=== PATIENT | male | born 1960 | race Caucasian/White ===

== ENCOUNTER 2017-11-08 04:01 | Emergency (ER) | payer BC, OTHER ==
[2017-11-08 04:50] LABS: #Basophils 0.1 thou/uL (0.0-0.2); #Eosinphils 0.1 thou/uL (0.0-0.7); #Lymphocytes 0.4 thou/uL (1.20-3.40); #Monocytes 0.5 thou/uL (0.11-0.59); #Neutrophils 9.4 thou/uL (1.40-6.50); %Basophils 0.8 % (0.0-1.0); %Eosinophils 0.9 % (0.0-10.0); %Lymphocytes 3.4 % (21.0-51.0); %Monocytes 5.1 % (0.0-10.0); %Neutrophils 89.8 % (42.0-75.0); Hemoglobin 15.8 g/dL (14.0-18.0); Mean Corpuscular HGB CONC 34.5 g/dL (32.0-36.0); Mean Corpuscular Hemoglobin 30.4 pg (27.0-31.0); Mean Corpuscular Volume 88.2 fl (80.0-94.0); Platelet Count 161 thou/uL (130-400); Red Blood Cell (RBC) Count 5.19 mill/uL (4.70-6.10); White Blood Cell (WBC) Count 10.4 thou/uL (4.8-10.8)
[2017-11-08 05:03] LABS: ALT (SGPT) 26 U/L (8-55); AST (SGOT) 20 U/L (5-34); Albumin 4.1 g/dL (3.5-5.0); Alkaline Phosphatase 66 U/L (40-150); Anion Gap 11 mmol/L (10-20); BUN (Urea Nitrogen) 16 mg/dL (8.4-25.7); Bilirubin, Total 0.7 mg/dL (0.2-1.2); Calc. Creatinine Clearance 0 mL/min (70-130); Calcium 9.5 mg/dL (7.8-10.44); Carbon Dioxide 29 mmol/L (22-29); Chloride 101 mmol/L (98-107); Estimated GFR-MDRD 71; Globulin 2.7 g/dL (2.4-3.5); Glucose 141 mg/dL (70-105); Potassium 3.9 mmol/L (3.5-5.1); Protein, Total 6.8 g/dL (6.0-8.3); Sodium 137 mmol/L (136-145)
[2017-11-08 05:08] LABS: CKMB 2.9 ng/mL (0-6.6); Troponin I Less than 0.010 ng/mL (< 0.028)
--- NOTE | 2017-11-08 08:17 | RAD ---
PORTABLE UPRIGHT FRONTAL CHEST RADIOGRAPH: Date: 11-08-17 Comparison: 09-13-16 History: Syncope. FINDINGS: There is no pneumothorax, pleural fluid, focal consolidation or alveolar edema. Heart and mediastinal contours are unremarkable. IMPRESSION: No acute findings. POS: [facility]
--- NOTE | 2017-11-08 08:40 | CT ---
PRELIMINARY REPORT/[facility]/EMERGENTY AFTER-HOURS PROCEDURE CT Head Without Intravenous Contrast CLINICAL HISTORY: 57 years old, male; Signs and symptoms; Syncope and collapse; Patient HX: M57 presents to ed for sync opal event. Pt reports syncopal episode x2 while in the bathroom. Pt's family reports she heard pt pa ss out, helped him back up, and reports pt then passed out again. Pt reports hitting his head and knee and reports pain to both his head and knee. Pt reports HX of similar symptoms when undergoing ca ncer treatment but denies HX of symptoms recently. Pt reports cough which he reports is normal for hi m since having throat surgery. TECHNIQUE: Axial computed tomography images of the head/brain without intravenous contrast. COMPARISON: No relevant prior studies available. FINDINGS: No definite acute skull fracture. Essentially complete opacification of the right maxillary sinus. Mild to moderate right ethmoid sinus opacity/fluid. Included paranasal sinuses otherwise appear essentially clear. No acute intracranial hemorrhage or mass effect. Ventricle size is normal for age. No definite acute infarct by CT. MRI could be more sensitive/specific for an acute infarct if clinically indicated. IMPRESSION: No acute intracranial bleed or mass effect. No definite acute infarct by CT, see above. Paranasal sinus findings as discussed above. Thank you for allowing us to participate in the care of your patient. Dictated and Authenticated by: Yordan Ha MD 11/08/2017 4:48 AM Central Time ([place] & [place]) FINAL REPORT HEAD CT WITHOUT CONTRAST: DATE: 11/08/17. COMPARISON: None. HISTORY: Syncope, collapse. FINDINGS: I agree with the preliminary [facility] report. The imaged maxillary sinus on the right is opacified. Th ere is no displaced calvarial fracture. There is no intracranial hemorrhage, midline shift, mass eff ect, or ventricular enlargement. IMPRESSION: No acute findings. POS: [facility]
== END 2017-11-08 05:24 | disposition home or self-care (01) ==
LOC: ERS 04:01
DX: R55 Syncope and collapse (principal); J18.9 Pneumonia, unspecified organism; J32.9 Chronic sinusitis, unspecified; F32.9 Major depressive disorder, single episode, unspecified; Z85.819 Personal history of malignant neoplasm of unspecified site of lip, oral cavity, and pharynx; Z79.82 Long term (current) use of aspirin; Z79.899 Other long term (current) drug therapy
CPT/HCPCS: 70450; 71045; 80053; 82553; 84484; 85025; 93005

== ENCOUNTER 2020-04-24 09:02 | Outpatient (CLI) | payer BC, OTHER ==
--- NOTE | 2020-04-24 11:43 | MRI ---
MRI BRAIN WITH AND WITHOUT CONTRAST: DATE: 04/23/2020 HISTORY: 59-year-old male with ICD-10: Z92.3 history of head and neck radiation, R51 chronic intractable head ache, unspecified head type, I63.9 cerebrovascular accident (CVA), unspecified mechanism. TECHNIQUE: Multiple sequences obtained in axial, sagittal, and coronal planes; pre and post IV injection of gado linium-based contrast agent: 20 mL MultiHance. FINDINGS: The ventricles are normal in size and configuration. There is no restricted diffusion, abnormal intr aaxial enhancement, mass, midline shift or any other mass effect, recent intraaxial hemorrhage, or ex traaxial fluid collection. There are a few scattered punctate T2-hyperintensities in the cerebral whi te matter consistent with mild chronic ischemic white matter changes due to mild microvascular athero sclerosis. The left submandibular gland is absent. There is broad surgical defect involving the left side of the neck. The anterior belly of the left digastric muscle is either atrophic or absent. There is enhancing mucosal thickening circumferentially in the right maxillary sinus and throughout r ight anterior ethmoid air cells. The right maxillary antrum lumen is filled with material that has re stricted diffusion, is heterogeneously T2 and moderately hyperintense, and T1 intermediate, represent ing proteinaceous material. Similar findings for the right ethmoid air cells. There are signal voids on all pulse sequences in the sphenoid and frontal sinuses. IMPRESSION: 1. Mild chronic ischemic white matter changes. 2. No other abnormality of the brain. 3. Right-sided maxillary and ethmoid sinus disease in an ostiomeatal unit obstructive pattern. 4. Old postsurgical changes of left neck dissection, partially imaged. david[] POS: [facility]
[2020-04-24] MEDS ORDERED: Magnevist 469MG/ML 20 ML VIAL ONE (13:36)
== END 2020-04-24 09:03 | disposition home or self-care (01) ==
LOC: BICMRI 09:02
PROVIDERS: ATTEND Family Medicine
DX: R51 Headache (principal); I63.9 Cerebral infarction, unspecified; G93.89 Other specified disorders of brain; J32.2 Chronic ethmoidal sinusitis; Z98.890 Other specified postprocedural states; Z92.3 Personal history of irradiation
CPT/HCPCS: 70553; 87635; U0003

== ENCOUNTER 2020-09-17 18:59 | Inpatient (IN) | payer BC ==
[~2020-09-17 18:59] MED LIST: Iopamidol-370 76% 500 ML 1 ML ONE
--- NOTE | 2020-09-17 19:20 | CT ---
CT Brain WO Con: 09/17/2020 7:05 PM CLINICAL HISTORY: Level 1 stroke protocol with left sided numbness and headache. IMAGING TECHNIQUE: Multiple CT images were obtained of the brain without IV contrast. COMPARISON: CT the brain without contrast dated November 08, 2017 FINDINGS: BRAIN: Evidence of acute infarct: None. Evidence of chronic ischemic change:Mild chronic small vessel white matter ischemic changes stable. Evidence of intracranial hemorrhage: None. Evidence of brain volume loss:Generalized cerebral atrophy is stable. Evidence of midline shift: Third ventricle and septum pellucidum are midline. Ventricles: Normal. No hydrocephalus. SKULL: Intact. VISUALIZED PARANASAL SINUSES: There is dense opacification of the right ethmoid air cells and right maxillary sinus. There is chronic thickening involving the right maxillary sinus rangel. There is mild mucosal thickening within the right frontal sinus. MASTOID AIR CELLS: Clear. EXTRACRANIAL SOFT TISSUES: Normal. IMPRESSION: 1. No acute intracranial abnormality. Findings called Dr. Medel at 7:16 PM on September 17, 2020. 2. Worsening right ethmoid and maxillary paranasal sinus disease.
[2020-09-17] MEDS ORDERED: niCARdipine 20MG In NaCl 20 MG/200 ML BAG ONE (19:32)
[2020-09-17 19:35] LABS: #Eosinphils 0.2 thou/uL (0.0-0.7); #Lymphocytes 2.3 thou/uL (1.20-3.40); #Monocytes 0.8 thou/uL (0.11-0.59); #Neutrophils 5.4 thou/uL (1.40-6.50); %Basophils 0.3 % (0.0-1.0); %Eosinophils 2.2 % (0.0-10.0); %Lymphocytes 26.6 % (21.0-51.0); %Monocytes 8.6 % (0.0-10.0); %Neutrophils 62.3 % (42.0-75.0); Hemoglobin 15.2 g/dL (14.0-18.0); Mean Corpuscular HGB CONC 34.3 g/dL (32.0-36.0); Mean Corpuscular Hemoglobin 30.3 pg (27.0-31.0); Mean Corpuscular Volume 88.2 fL (78.0-98.0); Mean Platelet Volume 6.2 fL (7.4-10.4); Platelet Count 167 thou/uL (130-400); RBC Distribution Width 11.8 % (11.5-14.5); Red Blood Cell (RBC) Count 5.03 mill/uL (4.70-6.10); White Blood Cell (WBC) Count 8.7 thou/uL (4.8-10.8)
--- NOTE | 2020-09-17 19:39 | CT ---
CTA of the head with IV contrast and 3-D reformatted imaging. CTA of the neck with IV contrast and 3-D reformatted imaging. INDICATION: Left-sided numbness with headache COMPARISON: MRA the neck dated March 09, 2017 FINDINGS: CTA OF THE HEAD WITH CONTRAST: CTA OF THE BRAIN: Right ICA: Patent. Right MCA: Patent. Right CHARIS: Patent. ACOM: Patent. Left ICA: Patent. Left MCA: Patent. Left CHARIS: Patent. PCOMs: Not well-seen on the left. The right PCOM appears patent. Vertebral arteries: Patent. Basilar Artery: Patent. cutter machine: Patent. Incidentals: There is prominent paranasal sinus disease involving the right maxillary sinus, right e thmoid air cells and right frontal sinus. The right lens has been replaced. No abnormal enhancement is demonstrated intracranially. CTA OF THE NECK WITH CONTRAST: Right CCA: Patent. Right ICA: There is 75% stenosis involving the proximal right ICA, worsened from the prior exam. No additional focal stenosis is demonstrated. Right Subclavian: Patent. Right Vertebral Artery: Patent. Left CCA: Patent. Left ICA: There is 60% stenosis involving the proximal left internal carotid artery, worsened from t he prior exam. No additional focal stenosis is evident. Left Subclavian: Patent. Left Vertebral Artery: Patent. Aerodigestive tract: Clear. Parotids/Submandibular/Thyroid glands: There is atrophy involving inferior left parotid and left sub mandibular gland. The thyroid gland is also atrophic. Right submandibular gland is also mildly atrophic. Lymph nodes: No lymphadenopathy is evident. The left sternocleidomastoid muscle is surgically absent . Lung Apices: Clear. Bones: No acute osseous abnormality. Incidentals: None. IMPRESSION: 1. No hemodynamically significant stenosis, occlusion or aneurysmal formation evident within the brai n. 2. 75% luminal caliber narrowing involving the proximal right ICA. 3. 60% luminal caliber narrowing involving the proximal left ICA. 4. Postoperative change of the left aspect of the neck with atrophy involving portions of the inferio r left parotid, submandibular glands and thyroid gland possibly related prior radiation therapy. 5. Significant paranasal sinus disease of the right maxillary sinus, right ethmoid air cells and righ t frontal sinus.
[2020-09-17 19:42] LABS: INR-International Normal Ratio 0.9; PTT 29.1 sec (22.9-36.1); Prothrombin Time 12.6 sec (12.0-14.7)
[2020-09-17 19:51] LABS: ALT (SGPT) 37 U/L (8-55); AST (SGOT) 30 U/L (5-34); Alkaline Phosphatase 64 U/L (40-110); Anion Gap 16 mmol/L (10-20); BUN (Urea Nitrogen) 12 mg/dL (8.4-25.7); Bilirubin, Total 0.4 mg/dL (0.2-1.2); CK (CPK) 158 U/L (30-200); Calc. Creatinine Clearance 0 mL/min (70-130); Calcium 8.7 mg/dL (7.8-10.44); Carbon Dioxide 20 mmol/L (22-29); Chloride 104 mmol/L (98-107); Globulin 2.8 g/dL (2.4-3.5); Glucose 163 mg/dL (70-105); Potassium 4.2 mmol/L (3.5-5.1); Protein, Total 6.8 g/dL (6.0-8.3); Sodium 136 mmol/L (136-145)
[2020-09-17] MEDS ORDERED: Ondansetron ODT 4 MG TAB SL PRN (23:45)
[2020-09-17] MEDS ORDERED: Ondansetron PF 4 MG/2 ML Vial IVP PRN (23:45)
[2020-09-17] MEDS ORDERED: Acetaminophen 325 MG TAB PO PRN (23:45)
[2020-09-18 00:19] LABS: SARS-CoV-2 NAA Rapid Test Not Detected (NotDetected)
[2020-09-18] MEDS ORDERED: niCARdipine 25 MG in Sodium Chloride 0.9% 250 ML 250 ML IVPB PRN (01:13)
[2020-09-18] MEDS ORDERED: Docusate 100 MG CAP PO PRN (01:13)
[2020-09-18] MEDS ORDERED: Labetalol HCl 100 MG/20 ML VIAL SLOW IVP PRN (01:13)
[2020-09-18] MEDS ORDERED: hydrALAZINE 20 MG/ML VIAL SLOW IVP PRN (01:13)
--- NOTE | 2020-09-18 01:20 | PDOC.HHP ---
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 Patient reports lateral elbow region of L arm became numb around 6pm, went to urgent care and sent to ED. He reports numbness in elbow and a bit in tongue and L thigh but no motor weakness, able to walk. In ED, patient given tPA and symptoms improved, now is a smaller area than when patient arrived. patient admitted to CCU for further workup and monitoring.CTA no hemodynamically significant stenosis, CT head no acute IC abnormalities. Allergies/Adverse Reactions: Allergy/AdvReac Type Severity Reaction Status Date / Time No Known Allergies Allergy Verified 09/18/20 00:21 Home Medications: Medication Instructions Recorded Confirmed Type Aspirin Chewable 81 mg PO DAILY 09/18/20 09/18/20 History Carvedilol [Coreg] 12.5 mg PO DAILY 09/18/20 09/18/20 History Clopidogrel Bisulfate [Clopidogrel] 75 mg PO DAILY 09/18/20 09/18/20 History Levothyroxine Sodium 150 mcg PO DAILY 09/18/20 09/18/20 History [Levothyroxine] Pravastatin Sodium [Pravachol] 20 mg PO HS 09/18/20 09/18/20 History Past History: PMH: ENT cancer, brain metastases PSH: throat surgery social history: weekly alcohol use FH: not relevant Hospitalist HPI ROS Constitutional: denies: fever, chills, sweats, weakness, malaise, other Eyes: denies: pain, vision change, conjunctivae inflammation, eyelid inflammation, redness, other ENT: denies: ear pain, ear discharge, nose pain, nose discharge, nose congestion, mouth pain, mouth swelling, throat pain, throat swelling, other Respiratory: denies: cough, dry, shortness of breath, hemoptysis, SOB with excertion, pleuritic pain, sputum, wheezing, other Cardiovascular: denies: chest pain, palpitations, orthopnea, paroxysmal noc. dyspnea, edema, light headedness, other Gastrointestinal: denies: nausea, vomiting, abdominal pain, diarrhea, constipation, melena, hematochezia, other Genitourinary: denies: dysuria, frequency, incontinence, hematuria, retention, other Musculoskeletal: denies: neck pain, shoulder pain, arm pain, back pain, hand pain, leg pain, foot pain, other Skin: denies: rash, lesions, toribio, bruising, other Neurological: reports: numbness, incoordination. denies: weakness, change in speech, confusion, seizures, other All other systems reviewed; all pertinent +/- noted in HPI/Subj Hospitalist Exam Vitals: Vital Signs (12 hours) Pulse Ox 09/18/20 00:45 96 Weight Weight 276 lb 7.355 oz Most Recent Monitor Data Heart Rate from ECG 72 NIBP 110/56 NIBP BP-Mean 74 Respiration from ECG 16 SpO2 94 General Appearance: NAD, awake alert Eye: PERRL, anicteric sclera ENT: normocephalic atraumatic, no oropharyngeal lesions, moist mucosa Neck: supple, symmetric, no JVD, no thyromegaly, no lymphadenopathy, no carotid bruit Heart: RRR, no murmur, no gallops, no rubs, normal peripheral pulses Respiratory: CTAB, no wheezes, no rales, no ronchi, normal chest expansion, no tachypnea, normal percussion Gastrointestinal: soft, non-tender, non-distended, normal bowel sounds, no palpable masses, no hepatomegaly, no splenomegaly, no bruit Extremities: no cyanosis, no clubbing, no edema Skin: normal turgor, no lesions, no rashes Neurological: cranial nerve grossly intact, no weakness, no new deficit Neurological - other findings: reduced sensation to touch lateral aspect of L arm Musculoskeletal: normal tone, normal strength, no muscle wasting Psychiatric: normal affect, normal behavior, A&O x 3 Hospitalist Results Result Diagrams: 09/17/20 19:13 09/17/20 19:13 Lab results: Laboratory Last Values WBC 8.7 thou/uL (4.8-10.8) 09/17/20 19:13 RBC 5.03 mill/uL (4.70-6.10) 09/17/20 19:13 Hgb 15.2 g/dL (14.0-18.0) 09/17/20 19:13 Hct 44.4 % (42.0-52.0) 09/17/20 19:13 MCV 88.2 fL (78.0-98.0) 09/17/20 19:13 MCH 30.3 pg (27.0-31.0) 09/17/20 19:13 MCHC 34.3 g/dL (32.0-36.0) 09/17/20 19:13 RDW 11.8 % (11.5-14.5) 09/17/20 19:13 Plt Count 167 thou/uL (130-400) 09/17/20 19:13 MPV 6.2 fL (7.4-10.4) L 09/17/20 19:13 Neutrophils % 62.3 % (42.0-75.0) 09/17/20 19:13 Lymphocytes % 26.6 % (21.0-51.0) 09/17/20 19:13 Monocytes % 8.6 % (0.0-10.0) 09/17/20 19:13 Eosinophils % 2.2 % (0.0-10.0) 09/17/20 19:13 Basophils % 0.3 % (0.0-1.0) 09/17/20 19:13 Neutrophils # 5.4 thou/uL (1.40-6.50) 09/17/20 19:13 Lymphocytes # 2.3 thou/uL (1.20-3.40) 09/17/20 19:13 Monocytes # 0.8 thou/uL (0.11-0.59) H 09/17/20 19:13 Eosinophils # 0.2 thou/uL (0.0-0.7) 09/17/20 19:13 Basophils # 0.0 thou/uL (0.0-0.2) 09/17/20 19:13 PT 12.6 sec (12.0-14.7) 09/17/20 19:13 INR 0.9 09/17/20 19:13 APTT 29.1 sec (22.9-36.1) 09/17/20 19:13 Sodium 136 mmol/L (136-145) 09/17/20 19:13 Potassium 4.2 mmol/L (3.5-5.1) 09/17/20 19:13 Chloride 104 mmol/L (98-107) 09/17/20 19:13 Carbon Dioxide 20 mmol/L (22-29) L 09/17/20 19:13 Anion Gap 16 mmol/L (10-20) 09/17/20 19:13 BUN 12 mg/dL (8.4-25.7) 09/17/20 19:13 Creatinine 1.12 mg/dL (0.7-1.3) 09/17/20 19:13 Estimated GFR (MDRD) 67 09/17/20 19:13 Glucose 163 mg/dL (70-105) H 09/17/20 19:13 POC Glucose 187 mg/dL (70-100) H 09/17/20 19:14 Calcium 8.7 mg/dL (7.8-10.44) 09/17/20 19:13 Total Bilirubin 0.4 mg/dL (0.2-1.2) 09/17/20 19:13 AST 30 U/L (5-34) 09/17/20 19:13 ALT 37 U/L (8-55) 09/17/20 19:13 Alkaline Phosphatase 64 U/L (40-110) 09/17/20 19:13 Creatine Kinase 158 U/L (30-200) 09/17/20 19:13 Troponin I 0.025 ng/mL (< 0.028) 09/17/20 19:13 Serum Total Protein 6.8 g/dL (6.0-8.3) 09/17/20 19:13 Albumin 4.0 g/dL (3.5-5.0) 09/17/20 19:13 Globulin 2.8 g/dL (2.4-3.5) 09/17/20 19:13 Albumin/Globulin Ratio 1.4 g/dL (1.2-2.2) 09/17/20 19:13 Influenza A RNA INAAT Not Detected (NotDetected) 09/17/20 23:25 Influenza B RNA INAAT Not Detected (NotDetected) 09/17/20 23:25 SARS-CoV-2 Rap RNA(RT-PCR) Not Detected (NotDetected) 09/17/20 23:25 Additional comment: labs, ED documents, imaging reports reviewed RADIOLOGY CTA Angio Head W WO Con Observe DT: Sera Sep 17, 2020 CTABR CTA of the head with IV contrast and 3-D reformatted imaging. CTA of the neck with IV contrast and 3-D reformatted imaging. INDICATION: Left-sided numbness with headache COMPARISON: MRA the neck dated March 09, 2017 FINDINGS: CTA OF THE HEAD WITH CONTRAST: CTA OF THE BRAIN: Right ICA: Patent. Right MCA: Patent. Right CHARIS: Patent. ACOM: Patent. Left ICA: Patent. Left MCA: Patent. Left CHARIS: Patent. PCOMs: Not well-seen on the left. The right PCOM appears patent. Vertebral arteries: Patent. Basilar Artery: Patent. chief operations officer: Patent. Incidentals: There is prominent paranasal sinus disease involving the right maxillary sinus, right e thmoid air cells and right frontal sinus. The right lens has been replaced. No abnormal enhancement is demonstrated intracranially. CTA OF THE NECK WITH CONTRAST: Right CCA: Patent. Right ICA: There is 75% stenosis involving the proximal right ICA, worsened from the prior exam. No additional focal stenosis is demonstrated. Right Subclavian: Patent. Right Vertebral Artery: Patent. Left CCA: Patent. Left ICA: There is 60% stenosis involving the proximal left internal carotid artery, worsened from t he prior exam. No additional focal stenosis is evident. Left Subclavian: Patent. Left Vertebral Artery: Patent. Aerodigestive tract: Clear. Parotids/Submandibular/Thyroid glands: There is atrophy involving inferior left parotid and left sub mandibular gland. The thyroid gland is also atrophic. Right submandibular gland is also mildly atrophic. Lymph nodes: No lymphadenopathy is evident. The left sternocleidomastoid muscle is surgically absent . Lung Apices: Clear. Bones: No acute osseous abnormality. Incidentals: None. IMPRESSION: 1. No hemodynamically significant stenosis, occlusion or aneurysmal formation evident within the brai n. 2. 75% luminal caliber narrowing involving the proximal right ICA. 3. 60% luminal caliber narrowing involving the proximal left ICA. 4. Postoperative change of the left aspect of the neck with atrophy involving portions of the inferio r left parotid, submandibular glands and thyroid gland possibly related prior radiation therapy. 5. Significant paranasal sinus disease of the right maxillary sinus, right ethmoid air cells and righ t frontal sinus. Hospitalist H&P A/P Plan: Patient is a 60 year old male with PMH ENT cancer w/ lymph node mets who presents to ED for L sided numbness. # presumed stroke s/p tPA lateral elbow region of L arm became numb around 6pm, went to urgent care and sent to ED. He reports numbness in elbow and a bit in tongue and L thigh but no motor weakness, able to walk. In ED, patient given tPA and symptoms improved, now is a smaller area than when patient arrived. patient admitted to CCU for further workup and monitoring.CTA no hemodynamically significant stenosis, CT head no acute IC abnormalities. 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 To the best of his knowledge he is cancer free at this time. No history of intracranial mets. Patient denies any weakness. He does report some numbness that was around his mouth as well. Symptoms are slightly improved compared to earlier but he is still having numbness in the left arm. - make sure no brain mets w/ MRI as above - outpatient surveillance recommended
[2020-09-18] MEDS: [UNRECOGNIZED DRUG - REMARK] FS SCH (05:06)
[2020-09-18] MEDS: Levothyroxine 150 MCG TAB PO SCH (05:39)
--- NOTE | 2020-09-18 07:04 | CT ---
PRELIMINARY REPORT/[facility]/EMERGENCY AFTER HOURS PROCEDURE: EXAM: CT Head Without Intravenous Contrast. CLINICAL HISTORY: S/P TPA TECHNIQUE: Axial computed tomography images of the head/brain without intravenous contrast. COMPARISON: CT\SR - CT BRAIN WO CON - 09/17/2020 07:12 PM CATHETER FINISHER AND INSPECTOR FINDINGS: BRAIN: No acute intraparenchymal hemorrhage. No mass lesion. No CT evidence for acute territorial inf arct. No midline shift or extra-axial collection. VENTRICLES: No hydrocephalus. ORBITS: The orbits are unremarkable. SINUSES AND MASTOIDS: There is stable opacification and mucoperiosteal thickening of the right maxill paolo sinus with persistent opacification of the anterior right ethmoid air cells. SOFT TISSUES: No significant facial or scalp soft tissue swelling evident. No radiopaque foreign body is seen. BONES: No acute skull fracture. IMPRESSION: 1. No acute intracranial abnormality. 2. Stable right maxillary and ethmoid sinus disease. ELECTRONICALLY SIGNED BY: Sean Downing DO Sep 18, 2020 4:43:06 AM CATHETER FINISHER AND INSPECTOR FINAL REPORT HEAD CT WITHOUT CONTRAST: DATE: 09/18/2020. COMPARISON: 09/17/2020. HISTORY: CVA status post TPA administration. FINDINGS: The imaged paranasal sinuses and mastoid air cells demonstrate opacification of the anterior ethmoid air cells, the maxillary sinus, and the frontal sinus (partially) on the right. The imaged paranasal sinuses and mastoid air cells are otherwise unremarkable. No acute osseous abnormality. No intracranial hemorrhage, midline shift, mass effect, or ventricular enlargement. IMPRESSION: No intracranial hemorrhage. Transcribed Date/Time: 09/18/2020 7:34 AM
[2020-09-18] MEDS ORDERED: Magnevist 469MG/ML 20 ML VIAL ONE (12:05)
--- NOTE | 2020-09-18 12:22 | PDOC.HOSPP ---
- Subjective Encounter Date: 09/18/20 Encounter Time: 12:20 Subjective: f/u for CVA s/p tPA with R ICA stenosis of 75%. Feels some sensory deficits of LUE otherwise no complaints. - Objective Vital Signs & Weight: Vital Signs (12 hours) Temp Pulse Ox 09/18/20 08:00 97 09/18/20 04:00 97.5 F L 09/18/20 00:45 96 Weight Weight 276 lb 7.355 oz Most Recent Monitor Data Heart Rate from ECG 77 NIBP 135/79 NIBP BP-Mean 97 Respiration from ECG 17 SpO2 96 I&O: 09/17/20 09/18/20 09/19/20 06:59 06:59 06:59 Intake Total 240 Output Total 580 420 Balance -340 -420 Result Diagrams: 09/17/20 19:13 09/17/20 19:13 Additional Labs: Accuchecks 09/17/20 19:14 POC Glucose 187 H Laboratory Tests 09/17/20 23:25 Influenza A RNA INAAT Not Detected Influenza B RNA INAAT Not Detected SARS-CoV-2 Rap RNA(RT-PCR) Not Detected Radiology Reviewed by me: Yes (CT brain - no acute process; CTA head/neck - R ICA 75%, L ICA 60%) EKG Reviewed by me: Yes (Tele - SR) Hospitalist ROS - Medication Medications: Active Medications Generic Name Dose Route Start Last Admin Trade Name Freq PRN Reason Stop Dose Admin Levothyroxine Sodium 150 mcg 09/18/20 06:00 09/18/20 05:39 Levothyroxine 150 Mcg Tab PO 150 mcg 0600 [facility] Administration Miscellaneous Information 1 each 09/18/20 01:13 09/18/20 05:06 No Anticoag -Tpa FS 09/19/20 08:59 Not Given NOW [facility] Hospitalist Exam Vitals: Vital Signs (12 hours) Temp Pulse Ox 09/18/20 08:00 97 09/18/20 04:00 97.5 F L 09/18/20 00:45 96 Weight Weight 276 lb 7.355 oz Most Recent Monitor Data Heart Rate from ECG 77 NIBP 135/79 NIBP BP-Mean 97 Respiration from ECG 17 SpO2 96 General Appearance: NAD, awake alert Eye: PERRL, anicteric sclera ENT: normocephalic atraumatic, no oropharyngeal lesions Neck: supple, symmetric, no JVD, no thyromegaly, no lymphadenopathy Heart: RRR, no gallops, no rubs, normal peripheral pulses Heart - other findings: S1, S2 Respiratory: CTAB, no wheezes, no rales, no ronchi, normal chest expansion, no tachypnea Gastrointestinal: soft, non-tender, non-distended, normal bowel sounds, no palpable masses Extremities: no cyanosis, no clubbing, no edema Skin: normal turgor, no lesions Neurological: cranial nerve grossly intact, no new deficit Musculoskeletal: normal tone, normal strength, no muscle wasting Psychiatric: A&O x 3, flat affect Hosp A/P (1) Acute CVA (cerebrovascular accident) Code(s): I63.9 - CEREBRAL INFARCTION, UNSPECIFIED Status: Acute Plan: R cerebral hemisphere infarcts, continue general stroke protocol, ASA/Lipitor, Echo pending, consult Vascular surgery regarding focal stenosis of ICA's (2) Hypertensive urgency Code(s): I16.0 - HYPERTENSIVE URGENCY Status: Acute Plan: Resolved, continue monitoring BP trend (3) Hypothyroidism Code(s): E03.9 - HYPOTHYROIDISM, UNSPECIFIED Status: Chronic (4) HLD (hyperlipidemia) Code(s): E78.5 - HYPERLIPIDEMIA, UNSPECIFIED Status: Chronic (5) CKD (chronic kidney disease), stage II Code(s): N18.2 - CHRONIC KIDNEY DISEASE, STAGE 2 (MILD) Status: Chronic - Plan plan discussed w/ family, PT/OT, social media specialist, speech therapy, respiratory therapy, out of bed/ambulate, DVT proph w/SCDs Stable currently Continue routine stroke protocol s/p tPA Avoid NSAIDs/anticoagulation Appreciate Neurology assitance 2D echo pending AM lab: BMP, CBC, A1C, Lipids Transfer to stroke
--- NOTE | 2020-09-18 13:21 | MRI ---
MRI of thebrain with and without contrast: 09/18/2020 COMPARISON:04/24/2020 HISTORY:Left-sided weakness, history of malignancy with metastatic disease, status post TPA administr ation TECHNIQUE: Multiplanar multisequence MR imaging of thebrain with and without contrast Findings:The diffusion weighted imaging demonstrates a very tiny punctate focus of increased signal i ntensity posteriorly on image 46 within the posterior parietal region on the right. A similar punctate focus is seen within the right frontal lobe laterally on image 47. At the level the vertex t here are a few punctate foci of increased signal intensity as well within the posterior right frontal parietal region. These findings suggest multiple tiny distal foci of acute infarction. No vicki dence for acute infarction is seen involving the left cerebrum, the brainstem, or the cerebellum. The axial gradient echo imaging demonstrates no evidence for intracranial hemorrhage. No midline shif t or mass effect. No ventricular enlargement. There are a few scattered subcentimeter foci of increased T2 and FLAIR signal within the white matter suggesting small vessel disease and increased s ignal intensity associated with the punctate areas of acute infarction mentioned above. The postcontrast imaging demonstrates no abnormal enhancement within the brain parenchyma. There is stable opacification of the frontal sinus, ethmoid air cells, and maxillary sinus on the rig ht. Arterial flow voids at the axial level of the skull base appear grossly unremarkable on the T2-weight ed imaging. IMPRESSION:Punctate foci of acute infarction within the right cerebral hemisphere as described above. No evidence for hemorrhage. No midline shift, mass effect, or intracranial enhancing lesions.
[2020-09-18] MEDS: Acetaminophen 500 MG TAB PO PRN (14:10)
--- NOTE | 2020-09-18 14:22 | CON ---
NEUROLOGY CONSULTATION DATE OF CONSULTATION: 09/18/2020 REASON FOR CONSULTATION: CVA, status post tPA. HISTORY OF PRESENT ILLNESS: Mr. Cristóbal Reyes is a 60-year-old male with medical history significant for ENT cancer with brain metastasis, status post throat surgery, presented to the emergency room with acute onset left-sided weakness and paresthesias . History is taken from the patient and also from the at bedside. Per , he decided to come to the hospital for further evaluation because he was concerned about stroke. In the emergency room, head CT was done, which was negative for acute intracranial abnormality. CTA did not show hemodynamically significant stenosis. He was found to be in hypertensive emergency and was started on nicardipine drip to get his blood pressure under control and was given tPA later that evening, which resulted in resolution of motor deficits. Per patient, he was unable to move his left arm and was weak in the left leg and the motor weakness is now resolved, but however, he still has tingling and he still has numbness on the left side of the face and the left upper and lower extremity. The patient denies nausea, vomiting, headache, chest pain, abdominal pain, double vision, loss of vision, problems with speech or swallowing, recent illness, or recent exposure to COVID-19. REVIEW OF SYSTEMS: All systems reviewed and were negative except the pertinent positives and negatives mentioned in the HPI. PAST MEDICAL HISTORY: ENT cancer, brain metastasis, throat surgery. SOCIAL HISTORY: Uses alcohol, but denies history of alcohol abuse. FAMILY HISTORY: No history of stroke. Allergies/Adverse Reactions: Allergy/AdvReac Type Severity Reaction Status Date / Time No Known Allergies Allergy Verified 09/18/20 00:21 Home Medications: Medication Instructions Recorded Confirmed Type Aspirin Chewable 81 mg PO DAILY 09/18/20 09/18/20 History Carvedilol [Coreg] 12.5 mg PO DAILY 09/18/20 09/18/20 History Clopidogrel Bisulfate [Clopidogrel] 75 mg PO DAILY 09/18/20 09/18/20 History Levothyroxine Sodium 150 mcg PO DAILY 09/18/20 09/18/20 History [Levothyroxine] Pravastatin Sodium [Pravachol] 20 mg PO HS 09/18/20 09/18/20 History Vital Signs & Weight: Vital Signs (12 hours) Temp Pulse Ox 09/18/20 08:00 97 09/18/20 04:00 97.5 F L 09/18/20 00:45 96 Weight Weight 276 lb 7.355 oz Most Recent Monitor Data Heart Rate from ECG 77 NIBP 135/79 NIBP BP-Mean 97 Respiration from ECG 17 SpO2 96 I&O: 09/17/20 09/18/20 09/19/20 06:59 06:59 06:59 Intake Total 240 Output Total 580 420 Balance -340 -420 Additional Labs: Accuchecks 09/17/20 19:14 POC Glucose 187 H Laboratory Tests 09/17/20 23:25 Influenza A RNA INAAT Not Detected Influenza B RNA INAAT Not Detected SARS-CoV-2 Rap RNA(RT-PCR) Not Detected Active Medications Generic Name Dose Route Start Last Admin Trade Name [employer] PRN Reason Stop Dose Admin Levothyroxine Sodium 150 mcg 09/18/20 06:00 09/18/20 05:39 Levothyroxine 150 Mcg Tab PO 150 mcg 0600 DEION Administration Miscellaneous Information 1 each 09/18/20 01:13 09/18/20 05:06 No Anticoag -Tpa FS 09/19/20 08:59 Not Given NOW DEION Vital Signs (12 hours) Pulse Ox 09/18/20 00:45 96 Weight Weight 276 lb 7.355 oz Most Recent Monitor Data Heart Rate from ECG 72 NIBP 110/56 NIBP BP-Mean 74 Respiration from ECG 16 SpO2 94 PHYSICAL EXAMINATION: General Appearance: NAD, awake alert Eye: PERRL, anicteric sclera ENT: normocephalic atraumatic, no oropharyngeal lesions, moist mucosa Neck: supple, symmetric, no JVD, no thyromegaly, no lymphadenopathy, no carotid bruit Heart: RRR, no murmur, no gallops, no rubs, normal peripheral pulses Respiratory: CTAB, no wheezes, no rales, no ronchi, normal chest expansion, no tachypnea, normal percussion Gastrointestinal: soft, non-tender, non-distended, normal bowel sounds, no palpable masses, no hepatomegaly, no splenomegaly, no bruit Extremities: no cyanosis, no clubbing, no edema Skin: normal turgor, no lesions, no rashes Neurological: Mental status; the patient is alert and oriented to person, place, and time. Recent and remote memory, intact. Fund of knowledge is appropriate. Speech is clear. Cranial nerves II through XII intact except decreased sensation to light touch in the V1, V2, V3 distribution. Motor; muscle tone and bulk are normal. Strength, 5/5 bilaterally. Sensory, decreased sensation to light touch in the left upper and lower extremity. Gait, deferred due to patient's safety reasons. Cerebellar, finger-nose testing intact. DATA REVIEWED: I reviewed the labs, which were significant for hyperglycemia of 163. CTA of the head and neck did not reveal hemodynamically significant stenosis. WBC 8.7 thou/uL (4.8-10.8) 09/17/20 19:13 RBC 5.03 mill/uL (4.70-6.10) 09/17/20 19:13 Hgb 15.2 g/dL (14.0-18.0) 09/17/20 19:13 Hct 44.4 % (42.0-52.0) 09/17/20 19:13 MCV 88.2 fL (78.0-98.0) 09/17/20 19:13 MCH 30.3 pg (27.0-31.0) 09/17/20 19:13 MCHC 34.3 g/dL (32.0-36.0) 09/17/20 19:13 RDW 11.8 % (11.5-14.5) 09/17/20 19:13 Plt Count 167 thou/uL (130-400) 09/17/20 19:13 MPV 6.2 fL (7.4-10.4) L 09/17/20 19:13 Neutrophils % 62.3 % (42.0-75.0) 09/17/20 19:13 Lymphocytes % 26.6 % (21.0-51.0) 09/17/20 19:13 Monocytes % 8.6 % (0.0-10.0) 09/17/20 19:13 Eosinophils % 2.2 % (0.0-10.0) 09/17/20 19:13 Basophils % 0.3 % (0.0-1.0) 09/17/20 19:13 Neutrophils # 5.4 thou/uL (1.40-6.50) 09/17/20 19:13 Lymphocytes # 2.3 thou/uL (1.20-3.40) 09/17/20 19:13 Monocytes # 0.8 thou/uL (0.11-0.59) H 09/17/20 19:13 Eosinophils # 0.2 thou/uL (0.0-0.7) 09/17/20 19:13 Basophils # 0.0 thou/uL (0.0-0.2) 09/17/20 19:13 PT 12.6 sec (12.0-14.7) 09/17/20 19:13 INR 0.9 09/17/20 19:13 APTT 29.1 sec (22.9-36.1) 09/17/20 19:13 Sodium 136 mmol/L (136-145) 09/17/20 19:13 Potassium 4.2 mmol/L (3.5-5.1) 09/17/20 19:13 Chloride 104 mmol/L (98-107) 09/17/20 19:13 Carbon Dioxide 20 mmol/L (22-29) L 09/17/20 19:13 Anion Gap 16 mmol/L (10-20) 09/17/20 19:13 BUN 12 mg/dL (8.4-25.7) 09/17/20 19:13 Creatinine 1.12 mg/dL (0.7-1.3) 09/17/20 19:13 Estimated GFR (MDRD) 67 09/17/20 19:13 Glucose 163 mg/dL (70-105) H 09/17/20 19:13 POC Glucose 187 mg/dL (70-100) H 09/17/20 19:14 Calcium 8.7 mg/dL (7.8-10.44) 09/17/20 19:13 Total Bilirubin 0.4 mg/dL (0.2-1.2) 09/17/20 19:13 AST 30 U/L (5-34) 09/17/20 19:13 ALT 37 U/L (8-55) 09/17/20 19:13 Alkaline Phosphatase 64 U/L (40-110) 09/17/20 19:13 Creatine Kinase 158 U/L (30-200) 09/17/20 19:13 Troponin I 0.025 ng/mL (< 0.028) 09/17/20 19:13 Serum Total Protein 6.8 g/dL (6.0-8.3) 09/17/20 19:13 Albumin 4.0 g/dL (3.5-5.0) 09/17/20 19:13 Globulin 2.8 g/dL (2.4-3.5) 09/17/20 19:13 Albumin/Globulin Ratio 1.4 g/dL (1.2-2.2) 09/17/20 19:13 Influenza A RNA INAAT Not Detected (NotDetected) 09/17/20 23:25 Influenza B RNA INAAT Not Detected (NotDetected) 09/17/20 23:25 SARS-CoV-2 Rap RNA(RT-PCR) Not Detected (NotDetected) 09/17/20 23:25 ASSESSMENT AND PLAN: (1) Acute CVA (cerebrovascular accident) Code(s): I63.9 - CEREBRAL INFARCTION, UNSPECIFIED Status: Acute (2) Hypertensive urgency Code(s): I16.0 - HYPERTENSIVE URGENCY Status: Acute (3) Hypothyroidism Code(s): E03.9 - HYPOTHYROIDISM, UNSPECIFIED Status: Chronic (4) HLD (hyperlipidemia) Code(s): E78.5 - HYPERLIPIDEMIA, UNSPECIFIED Status: Chronic (5) CKD (chronic kidney disease), stage II Code(s): N18.2 - CHRONIC KIDNEY DISEASE, STAGE 2 (MILD) Status: Chronic Mr. Cristóbal Reyes is a 60-year-old male with history significant for ENT cancer with lymph node metastasis, presented to the emergency room with acute onset left hemiparesis and numbness. He is status post tPA and has been doing well. His motor weakness is resolved, but still has paresthesias of the left upper and lower extremity. Consider repeat head CT 24 hours post tPA to rule out bleed. If negative, then start anti-platelet therapy. The patient has been taking aspirin and Plavix at home and has been compliant with the medication. Since this is an aspirin and Plavix combination failure, so consider switching to Aggrenox. Neuro checks every 2 hours. No needles or blood thinners for 24 hours post tPA. Check hemoglobin A1c, fasting lipid panel, and TSH. Start high- intensity statin and Lovenox 24 hours post tPA. if head CT is negative for bleed, Permissive control of blood pressure at this time. Strict control of blood glucose. Telemetry to rule out arrhythmias. 2D echo to evaluate for left ventricular ejection fraction and to rule out PFO. Continue medical management per Primary Team. MRI of the brain to assess for acute intracranial process, PT/OT/speech. Continue medical management per Primary Team. DVT prophylaxis. We will continue to follow. Thank you for the consult. Plan discussed in detail with the patient, at bedside and also with the nursing staff. Job ID: [id number] MTDD
--- NOTE | 2020-09-18 15:49 | CON ---
DATE OF CONSULTATION: 09/18/2020 REQUESTING PHYSICIAN: Dr. Woodson; Neurology, Dr. Lira. PRIMARY CARE: Dr. Edgardo Morales. 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 He was released from followup by his local oncologist, Dr. Lubin about 2 years ago with no evidence of recurrence. Yesterday afternoon or early evening, he developed weakness and paresthesias affecting his left forearm and hand that persisted. He presented to the emergency room here about 2 hours after onset of symptoms, and about an hour or two after receiving tPA, he had dramatic improvement but not complete resolution of those symptoms. He has had no recurrence of them. He has had some known carotid disease that apparently was picked up during the course of his radiographic screenings for his cancer. An MRI in February of 2017 suggested a left carotid stenosis somewhat greater than 50% and right carotid stenosis of about 40%. He apparently at that time was started on baby aspirin and Plavix and he has been faithful with taking that. He has not had any other eye, speech, facial, or extremity symptoms to suggest TIAs. PAST MEDICAL HISTORY: As above. He says that his blood pressure has been creeping up a little bit higher over this past year. HOME MEDICATIONS: 1. Coreg 12.5 mg a day. 2. Synthroid 150 mcg a day. 3. Baby aspirin a day. 4. Plavix 75 mg a day. 5. Pravachol 20 mg at bedtime. ALLERGIES: HE DENIES ANY TRUE MEDICAL ALLERGIES, BUT DOES REPORT BEING VERY SENSITIVE TO NARCOTICS WITH SOMNOLENCE BEING VERY PROMINENT SIDE EFFECT. SOCIAL HISTORY: He does not smoke or use smokeless tobacco. REVIEW OF SYSTEMS: Negative for any antecedent TIA symptoms. Negative for any chest pain, any shortness of breath, or any claudication. PHYSICAL EXAMINATION: GENERAL: He is 6 feet 2 inches and weighs 276.5 pounds. He has obvious asymmetry on the two sides of his neck, status post neck dissection. VITAL SIGNS: On presentation in the emergency room, his heart rate was 82 and blood pressure 156/96. Currently, his heart rates are in the 70s and blood pressure 141/80, room air O2 saturations are in the mid 90s. Cranial nerves 2 through 12 are grossly. NECK: He has a somewhat atrophic left trapezius and sunken in left neck and supraclavicular fossa with neovascularization and tightness of that skin consistent with postsurgical and post radiation changes. Those post radiation changes stopped short of the midline. His skin and soft tissues deep to that in the midline and on the right side of the neck grossly appear normal. LUNGS: He has clear breath sounds. HEART: Regular rate and rhythm. NEUROLOGIC: Cranial nerves 2 through 12 are grossly intact as is upper and lower extremity strength. EXTREMITIES: He has no clubbing, cyanosis, or edema. He has palpable dorsalis pedis pulses. LABORATORY EXAM: He has a white count of 8.7, hemoglobin 15.2, platelet count 167,000. PT is 12.6, INR 0.9, PTT 29.1. He had normal electrolytes. Glucose 163, BUN 12, creatinine 1.12, with an estimated GFR of 67, calcium is 8.7, albumin 4.0. LFTs were normal. Troponin was 0.[address] His brain CT in the ER as well as about 12 hours later showed no obvious acute changes. His CTA shows bilateral carotid stenoses, worse on the right than on the left. By my review, the right is probably on the order of 80% or 90% and the left is about 70% or 80%, although the radiologist's report describes 75% and 60% respectively. 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 IMPRESSION AND RECOMMENDATIONS: He would appear to have symptomatic right carotid stenosis. He describes a residual deficit approaching 24 hours post event with some residual paresthesias along the ulnar distribution of his hand and along the extensor and ulnar side of his forearm. He has a high-grade right carotid stenosis. He also has a fairly high-grade left carotid stenosis that is asymptomatic. Given his radical neck dissection and radiation to the left neck, I would opt for ongoing medical management of the left side with regular surveillance. On the right side, however, I think intervention is warranted. He does not appear to have obvious radiation changes to the right neck to make me leery of that posing a hostile field that may not heal well, and I am inclined to recommend endarterectomy with perhaps empiric patching using saphenous vein rather than any xenograft material or prosthetic material. Since, he had this event on aspirin and Plavix, I would be inclined to go ahead and do it this hospitalization. Job ID: [id number]
--- NOTE | 2020-09-18 16:00 | PDOC.BPN ---
- Brief Progress Note Encounter Date: 09/18/20 ADDENDUM: CTA of the head did not show hemodynamically signficant stenosis. CTA of the neck showed high grade stenosis of both right and left ICA. cv surgery is on board.
[2020-09-18] MEDS: Atorvastatin Calcium 40 MG TAB PO SCH (20:36)
[2020-09-18] MEDS: Simvastatin 10 MG TAB PO SCH (20:37)
--- NOTE | 2020-09-18 21:17 | CT ---
Exam: Head CT without contrast HISTORY: Status post TPA, 24 hours since administration COMPARISON: 09/18/2020 Correlation: Brain MRI 09/18/2020 FINDINGS: Hemorrhage: No intraparenchymal hemorrhage or extra-axial hematoma. Brain parenchyma: Cortical lugo-white matter differentiation is preserved. No mass effect or midline shift. Basilar cisterns are patent. Ventricular system: Ventricles and sulci are patent and symmetric. Calvarium: Intact. Sinuses and mastoid air cells: Chronic opacification of the right maxillary sinus IMPRESSION: No evidence of intracranial hemorrhage.
[2020-09-19] MEDS: [UNRECOGNIZED DRUG - REMARK] FS SCH (00:30)
[2020-09-19 04:10] LABS: #Eosinphils 0.2 thou/uL (0.0-0.7); #Lymphocytes 1.7 thou/uL (1.20-3.40); #Monocytes 0.8 thou/uL (0.11-0.59); #Neutrophils 4.7 thou/uL (1.40-6.50); %Basophils 0.3 % (0.0-1.0); %Eosinophils 2.2 % (0.0-10.0); %Lymphocytes 22.7 % (21.0-51.0); %Monocytes 10.8 % (0.0-10.0); %Neutrophils 64.1 % (42.0-75.0); Hemoglobin 14.9 g/dL (14.0-18.0); Mean Corpuscular HGB CONC 34.7 g/dL (32.0-36.0); Mean Corpuscular Hemoglobin 30.6 pg (27.0-31.0); Mean Corpuscular Volume 87.9 fL (78.0-98.0); Mean Platelet Volume 6.3 fL (7.4-10.4); Platelet Count 163 thou/uL (130-400); RBC Distribution Width 11.7 % (11.5-14.5); Red Blood Cell (RBC) Count 4.89 mill/uL (4.70-6.10); White Blood Cell (WBC) Count 7.3 thou/uL (4.8-10.8)
[2020-09-19 04:16] LABS: Hemoglobin A1c 5.6 % (4.0-6.0)
[2020-09-19 04:38] LABS: Anion Gap 14 mmol/L (10-20); BUN (Urea Nitrogen) 11 mg/dL (8.4-25.7); Calc. Creatinine Clearance 147 mL/min (70-130); Carbon Dioxide 25 mmol/L (22-29); Cardiac Risk 4.6 (Less than 4.5); Chloride 103 mmol/L (98-107); Cholesterol 153 mg/dl (< 200 Desired); Glucose 111 mg/dL (70-105); HDL Cholesterol 33 mg/dL (>60 Neg Risk); LDL Cholesterol, Calculated 93 mg/dL; Potassium 3.8 mmol/L (3.5-5.1); Sodium 138 mmol/L (136-145); Triglycerides 134 mg/dL (Less than 150)
[2020-09-19] MEDS: Levothyroxine 150 MCG TAB PO SCH (05:25)
[2020-09-19] MEDS: Aspirin 325 mg Enteric Coated Tablet PO SCH (08:48)
[2020-09-19] MEDS: Carvedilol 6.25 MG TAB PO SCH (08:49)
[2020-09-19] MEDS: Enoxaparin Sodium 40 MG/0.4 ML SYRINGE SC SCH (08:49)
--- NOTE | 2020-09-19 11:31 | PDOC.HOSPP ---
- Subjective Encounter Date: 09/19/20 Encounter Time: 11:29 Subjective: Mr. Reyes was seen today in follow-up of acute CVA. He does not have any complaints. He notes just a little numbness on the left arm. - Objective Vital Signs & Weight: Vital Signs (12 hours) Temp BP Pulse Ox 09/19/20 09:00 98.4 F 09/19/20 08:49 123/75 09/19/20 07:47 97 09/19/20 07:14 96 09/19/20 04:00 97.8 F Weight Weight 273 lb 5.971 oz Most Recent Monitor Data Heart Rate from ECG 83 NIBP 122/75 NIBP BP-Mean 90 Respiration from ECG 19 SpO2 98 I&O: 09/18/20 09/19/20 09/20/20 06:59 06:59 06:59 Intake Total 240 1641 250 Output Total 580 1745 300 Balance -340 -104 -50 Result Diagrams: 09/19/20 03:17 09/19/20 03:17 Hospitalist ROS - Medication Medications: Active Medications Generic Name Dose Route Start Last Admin Trade Name Freq PRN Reason Stop Dose Admin Acetaminophen 1,000 mg 09/18/20 14:06 09/18/20 14:10 Acetaminophen 500 Mg Tab PO 1,000 mg Q6H PRN Administration Headache Aspirin 325 mg 09/19/20 09:00 09/19/20 08:48 Aspirin 325 Mg Enteric Coated Tablet PO 325 mg DAILY DEION Administration Atorvastatin Calcium 40 mg 09/18/20 21:00 09/18/20 20:36 Atorvastatin Calcium 40 Mg Tab PO 40 mg HS DEION Administration Carvedilol 12.5 mg 09/19/20 09:00 09/19/20 08:49 Carvedilol 6.25 Mg Tab PO 12.5 mg DAILY DEION Administration Enoxaparin Sodium 40 mg 09/19/20 09:00 09/19/20 08:49 Enoxaparin Sodium 40 Mg/0.4 Ml Syringe SC 40 mg 0900 DEION Administration Levothyroxine Sodium 150 mcg 09/18/20 06:00 09/19/20 05:25 Levothyroxine 150 Mcg Tab PO 150 mcg 0600 DEION Administration Simvastatin 10 mg 09/18/20 21:00 09/18/20 20:37 Simvastatin 10 Mg Tab PO 10 mg HS DEION Administration Hospitalist Exam Vitals: Vital Signs (12 hours) Temp BP Pulse Ox 09/19/20 09:00 98.4 F 09/19/20 08:49 123/75 09/19/20 07:47 97 09/19/20 07:14 96 09/19/20 04:00 97.8 F Weight Weight 273 lb 5.971 oz Most Recent Monitor Data Heart Rate from ECG 83 NIBP 122/75 NIBP BP-Mean 90 Respiration from ECG 19 SpO2 98 General Appearance: NAD, awake alert Eye: PERRL, anicteric sclera Heart: RRR, no murmur, no gallops, no rubs, normal peripheral pulses Respiratory: CTAB, no wheezes, no rales, no ronchi, normal chest expansion, no tachypnea, normal percussion Gastrointestinal: soft, non-tender, non-distended, normal bowel sounds, no palpable masses, no hepatomegaly Extremities: no cyanosis, no edema Neurological: cranial nerve grossly intact, no focal deficits Psychiatric: A&O x 3 Hosp A/P (1) Acute CVA (cerebrovascular accident) Code(s): I63.9 - CEREBRAL INFARCTION, UNSPECIFIED Status: Acute (2) Hypertension Code(s): I10 - ESSENTIAL (PRIMARY) HYPERTENSION Status: Chronic (3) Head and neck cancer Code(s): C76.0 - MALIGNANT NEOPLASM OF HEAD, FACE AND NECK Status: Chronic (4) CKD (chronic kidney disease), stage II Code(s): N18.2 - CHRONIC KIDNEY DISEASE, STAGE 2 (MILD) Status: Chronic (5) HLD (hyperlipidemia) Code(s): E78.5 - HYPERLIPIDEMIA, UNSPECIFIED Status: Chronic (6) Hypothyroidism Code(s): E03.9 - HYPOTHYROIDISM, UNSPECIFIED Status: Chronic - Plan * Acute Right Cerebral CVA- he is s/p TPA. Clinically stable. His NIH is now a 1, due to left sided numbness. He does not demonstrate any muscle weakness * HTN- blood pressure is controlled * CKD- renal function is stable * History of head and Neck cancer- s/p radiation * Hypothyroidism- stable- continue Levothyroxine * He is stable to transition to the Stroke Unit
--- NOTE | 2020-09-19 16:07 | PDOC.NEUPN ---
- Subjective Encounter Date: 09/19/20 Subjective: Mr. Reyes feels better today and only reports residual paresthesia but weakness is completely resolved. - Objective Vital Signs & Weight: Vital Signs (12 hours) Temp Pulse Resp BP BP Pulse Ox 09/19/20 15:00 98.4 F 78 18 140/97 H 97 09/19/20 12:00 99.0 F 09/19/20 09:00 98.4 F 09/19/20 08:49 123/75 09/19/20 07:47 97 09/19/20 07:14 96 Weight Weight 273 lb 5.971 oz Most Recent Monitor Data Heart Rate from ECG 75 NIBP 123/81 NIBP BP-Mean 95 Respiration from ECG 16 SpO2 97 I&O: 09/18/20 09/19/20 09/20/20 06:59 06:59 06:59 Intake Total 240 1641 712 Output Total 580 1745 550 Balance -340 -104 162 Result Diagrams: 09/19/20 03:17 09/19/20 03:17 Radiology Reviewed by me: Yes EKG Reviewed by me: Yes ROS - Review of Systems Constitutional: denies: fever, chills, sweats, weakness, malaise, other Eyes: denies: pain, vision change, conjunctivae inflammation, eyelid inflammation, redness, other ENT: denies: ear pain, ear discharge, nose pain, nose discharge, nose congestion, mouth pain, mouth swelling, throat pain, throat swelling, other Gastrointestinal: denies: nausea, vomiting, abdominal pain, diarrhea, constipation, melena, hematochezia, other Genitourinary: denies: dysuria, frequency, incontinence, hematuria, retention, other Musculoskeletal: denies: neck pain, shoulder pain, arm pain, back pain, hand pain, leg pain, foot pain, other Neurological: reports: numbness - Medication Medications: Active Medications Generic Name Dose Route Start Last Admin Trade Name Freq PRN Reason Stop Dose Admin Acetaminophen 1,000 mg 09/18/20 14:06 09/18/20 14:10 Acetaminophen 500 Mg Tab PO 1,000 mg Q6H PRN Administration Headache Aspirin 325 mg 09/19/20 09:00 09/19/20 08:48 Aspirin 325 Mg Enteric Coated Tablet PO 325 mg DAILY DEION Administration Atorvastatin Calcium 40 mg 09/18/20 21:00 09/18/20 20:36 Atorvastatin Calcium 40 Mg Tab PO 40 mg HS DEION Administration Carvedilol 12.5 mg 09/19/20 09:00 09/19/20 08:49 Carvedilol 6.25 Mg Tab PO 12.5 mg DAILY DEION Administration Enoxaparin Sodium 40 mg 09/19/20 09:00 09/19/20 08:49 Enoxaparin Sodium 40 Mg/0.4 Ml Syringe SC 40 mg 0900 DEION Administration Levothyroxine Sodium 150 mcg 09/18/20 06:00 09/19/20 05:25 Levothyroxine 150 Mcg Tab PO 150 mcg 0600 DEION Administration Simvastatin 10 mg 09/18/20 21:00 09/18/20 20:37 Simvastatin 10 Mg Tab PO 10 mg HS DEION Administration - Exam General Appearance: awake alert Eye: PERRL ENT: normocephalic atraumatic Neck: supple Respiratory: CTAB Gastrointestinal: soft Extremities: no cyanosis Skin: normal turgor Neurological: no new deficit Musculoskeletal: normal tone, normal strength, no muscle wasting PSYCH: normal affect, normal behavior, A&O x 3, oriented to person, oriented to place, oriented to time Results - Labs Result Diagrams: 09/19/20 03:17 09/19/20 03:17 Lab results: WBC 7.3 thou/uL (4.8-10.8) 09/19/20 03:17 Hgb 14.9 g/dL (14.0-18.0) 09/19/20 03:17 Hct 43.0 % (42.0-52.0) 09/19/20 03:17 MCV 87.9 fL (78.0-98.0) 09/19/20 03:17 Plt Count 163 thou/uL (130-400) 09/19/20 03:17 Neutrophils % 64.1 % (42.0-75.0) 09/19/20 03:17 Sodium 138 mmol/L (136-145) 09/19/20 03:17 Potassium 3.8 mmol/L (3.5-5.1) 09/19/20 03:17 Chloride 103 mmol/L (98-107) 09/19/20 03:17 Carbon Dioxide 25 mmol/L (22-29) 09/19/20 03:17 BUN 11 mg/dL (8.4-25.7) 09/19/20 03:17 Creatinine 0.96 mg/dL (0.7-1.3) 09/19/20 03:17 Glucose 111 mg/dL (70-105) H 09/19/20 03:17 Calcium 9.0 mg/dL (7.8-10.44) 09/19/20 03:17 Total Bilirubin 0.4 mg/dL (0.2-1.2) 09/17/20 19:13 AST 30 U/L (5-34) 09/17/20 19:13 ALT 37 U/L (8-55) 09/17/20 19:13 Alkaline Phosphatase 64 U/L (40-110) 09/17/20 19:13 Creatine Kinase 158 U/L (30-200) 09/17/20 19:13 Troponin I 0.025 ng/mL (< 0.028) 09/17/20 19:13 Serum Total Protein 6.8 g/dL (6.0-8.3) 09/17/20 19:13 Albumin 4.0 g/dL (3.5-5.0) 09/17/20 19:13 - Radiology Interpretation MRI - head Additional Comment: MRI head was positive for acute infarction. MRI of the head showed punctate areas of acute infarction in the right cerebral hemisphere. PN A/P (1) Acute CVA (cerebrovascular accident) Code(s): I63.9 - CEREBRAL INFARCTION, UNSPECIFIED Status: Acute (2) Hypertensive urgency Code(s): I16.0 - HYPERTENSIVE URGENCY Status: Acute (3) CKD (chronic kidney disease), stage II Code(s): N18.2 - CHRONIC KIDNEY DISEASE, STAGE 2 (MILD) Status: Chronic (4) HLD (hyperlipidemia) Code(s): E78.5 - HYPERLIPIDEMIA, UNSPECIFIED Status: Chronic (5) Head and neck cancer Code(s): C76.0 - MALIGNANT NEOPLASM OF HEAD, FACE AND NECK Status: Chronic (6) Hypertension Code(s): I10 - ESSENTIAL (PRIMARY) HYPERTENSION Status: Chronic (7) Hypothyroidism Code(s): E03.9 - HYPOTHYROIDISM, UNSPECIFIED Status: Chronic - Plan Daily Plan: PT/OT, speech therapy, out of bed/ambulate, DVT proph w/SCDs Mr. Reyes is a 60-year-old male with medical history significant for hypertension, hypothyroidism, neck and throat cancer presented to the emergency room with focal weakness and numbness on the left. He is s/p TPA and there is monitoring for improvement in neurological deficits with complete resolution of focal motor deficits. He still complains of residual paresthesias on the left upper extremity. MRI of the brain reviewed which was consistent with punctate areas of acute infarction in the right cerebral hemisphere. Which explains his symptoms. CTA of the head did not reveal hemodynamically significant stenosis. CTA of the neck showed high-grade stenosis of both right and left ICA. CV surgery is on board and is a potential candidate for surgical intervention intervention. 2D echo showed left ventricular ejection fraction 60 to 65%. No thrombus or PFO Head CT 24 hours post TPA is negative for bleed. Resume aspirin for secondary stroke prevention. Consider starting high intensity statin for secondary stroke prevention. Monitor blood pressure and blood glucose. Neurochecks every 4 hours. Telemetry to rule out arrhythmias. PT/OT/speech Continue medical management per primary team. Plan discussed in detail with the patient and also with the nursing staff.
--- NOTE | 2020-09-19 16:29 | PDOC.PULCN ---
Pulmonology Consult: HPI - Date of Consult Date: 09/18/20 Time: 12:20 - Consult Details Reason for Consult: Asked to see patient due to established ICU policy. He is s/p TPA for ischemic CVA, symptoms occurred while driving with left arm weakness and tingling, now almost completely resolved with full return of motor function. 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 Has carotid stenoses. Is physically active - History of Present Illness HPI: NEYMAR HAMPTON is a 60 year-old M . He is s/p TPA for ischemic CVA, symptoms occurred while driving with left arm weakness and tingling, now almost completely resolved with full return of motor function. 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 Has carotid stenoses. Is physically active. Hx hypertension. Otherwise no significant hx Pulmonology Consult: ROS - Review of Systems Constitutional: negative: fever, chills, sweats, weakness, malaise, other Cardiovascular: negative: chest pain, palpitations, orthopnea, paroxysmal nocturnal dyspnea, edema, light headedness, other Respiratory: negative: no reported symptoms, bloody sputum, congestion, cough, chest soreness, chest tightness, pain on deep breathing, exercise intolerance, non-productive cough, orthopnea, other, productive cough, short of breath, blodd streaked sputum, stridor, tachypnea, wheezing Pulmonology Consult: [facility] Source: patient - Social History Smoking Status: Never smoker Alcohol Use: rarely Drug Use History: none Living Situation: Pulmonology Consult: Meds - Medications MAR Reviewed: Yes Medications: Current Medications Acetaminophen (Acetaminophen 500 Mg Tab) 1,000 mg PO Q6H PRN PRN Reason: Headache Last Admin: 09/18/20 14:10 Dose: 1,000 mg Documented by: Aspirin (Aspirin 325 Mg Enteric Coated Tablet) 325 mg PO DAILY DEION Atorvastatin Calcium (Atorvastatin Calcium 40 Mg Tab) 40 mg PO HS DEION Carvedilol (Carvedilol 6.25 Mg Tab) 12.5 mg PO DAILY DEION Docusate Sodium (Docusate 100 Mg Cap) 100 mg PO BIDPRN PRN PRN Reason: Constipation Enoxaparin Sodium (Enoxaparin Sodium 40 Mg/0.4 Ml Syringe) 40 mg SC 0900 DEION Hydralazine HCl (Hydralazine 20 Mg/Ml Vial) 10 mg SLOW IVP Q4H PRN PRN Reason: SBP > 180 or DBP > 105 Nicardipine HCl 25 mg/ Sodium (Chloride) 260 mls @ 0 mls/hr IVPB INF PRN; Protocol PRN Reason: SBP > 180 or DBP > 105 Labetalol HCl (Labetalol Hcl 100 Mg/20 Ml Vial) 10 mg SLOW IVP Q10M PRN PRN Reason: SBP > 180 or DBP > 105 Levothyroxine Sodium (Levothyroxine 150 Mcg Tab) 150 mcg PO 0600 DEION Last Admin: 09/18/20 05:39 Dose: 150 mcg Documented by: Miscellaneous Information (No Anticoag -Tpa) 1 each FS NOW DEION Stop: 09/19/20 08:59 Last Admin: 09/18/20 05:06 Dose: Not Given Documented by: Simvastatin (Simvastatin 10 Mg Tab) 10 mg PO HS [facility] - Allergies Allergies/Adverse Reactions: Allergies Allergy/AdvReac Type Severity Reaction Status Date / Time No Known Allergies Allergy Verified 09/18/20 00:21 Pulmonology Consult: PE - Physical Exam HEENT: PERRLA Neck: no nodes Cardiovascular: RRR, no significant murmur Respiratory: clear to auscultation anteriorly Focused Respiratory Location: decreased breath sounds: Lower Gastrointestinal: soft, non-tender, no distention Musculoskeletal: no edema, pulses present Neurological: non-focal, moves all 4 limbs Psychiatric: normal affect, A&O x 3 Pulmonology Consult: Results - Labs Result Diagrams: 09/19/20 03:17 09/19/20 03:17 Pulmonology Consult: A/P - Problem (1) Acute CVA (cerebrovascular accident) Current Visit: Yes Code(s): I63.9 - CEREBRAL INFARCTION, UNSPECIFIED Status: Acute - Time Time: 50% of the time was spent in coordination of care (as documented) at patient's floor/unit and/or counseling patient. jTime 30 mins - Plan Plan: Agree with outline plan per Dr Woodson will not continue to follow unless needed please call if needed thank you
[2020-09-19] MEDS: Atorvastatin Calcium 40 MG TAB PO SCH (21:33)
[2020-09-19] MEDS: Simvastatin 10 MG TAB PO SCH (22:29)
[2020-09-20] MEDS: Acetaminophen 500 MG TAB PO PRN ×2 (01:00→23:35)
[2020-09-20] MEDS: Levothyroxine 150 MCG TAB PO SCH (04:54)
[2020-09-20 06:40] VITALS: BMI 35.1
[2020-09-20] MEDS: Enoxaparin Sodium 40 MG/0.4 ML SYRINGE SC SCH (10:43)
[2020-09-20] MEDS: Aspirin 325 mg Enteric Coated Tablet PO SCH (10:43)
[2020-09-20] MEDS: Carvedilol 6.25 MG TAB PO SCH (10:47)
--- NOTE | 2020-09-20 17:25 | PDOC.HOSPP ---
- Subjective Encounter Date: 09/20/20 Encounter Time: 17:22 Subjective: Mr. Reyes was seen today in follow-up of acute CVA post tPa. He does not have any complaints today. He has been out walking much of the afternoon. - Objective Vital Signs & Weight: Vital Signs (12 hours) Temp Pulse Resp BP BP BP Pulse Ox 09/20/20 15:20 98.3 F 75 18 110/63 96 09/20/20 11:10 98 F 73 18 127/67 95 09/20/20 10:47 110/60 09/20/20 07:15 97.4 F L 70 18 110/60 95 Weight Weight 273 lb 5.971 oz Most Recent Monitor Data Heart Rate from ECG 75 NIBP 123/81 NIBP BP-Mean 95 Respiration from ECG 16 SpO2 97 I&O: 09/19/20 09/20/20 09/21/20 06:59 06:59 06:59 Intake Total 3942 191 1234 Output Total 1745 550 Balance -071 715 0640 Result Diagrams: 09/19/20 03:17 09/19/20 03:17 Hospitalist ROS - Medication Medications: Active Medications Generic Name Dose Route Start Last Admin Trade Name Freq PRN Reason Stop Dose Admin Acetaminophen 1,000 mg 09/18/20 14:06 09/20/20 01:00 Acetaminophen 500 Mg Tab PO 1,000 mg Q6H PRN Administration Headache Aspirin 325 mg 09/19/20 09:00 09/20/20 10:43 Aspirin 325 Mg Enteric Coated Tablet PO 325 mg DAILY DEION Administration Atorvastatin Calcium 40 mg 09/18/20 21:00 09/19/20 21:33 Atorvastatin Calcium 40 Mg Tab PO 40 mg HS DEION Administration Carvedilol 12.5 mg 09/19/20 09:00 09/20/20 10:47 Carvedilol 6.25 Mg Tab PO 12.5 mg DAILY DEION Administration Enoxaparin Sodium 40 mg 09/19/20 09:00 09/20/20 10:43 Enoxaparin Sodium 40 Mg/0.4 Ml Syringe SC 40 mg 0900 DEION Administration Levothyroxine Sodium 150 mcg 09/18/20 06:00 09/20/20 04:54 Levothyroxine 150 Mcg Tab PO 150 mcg 0600 DEION Administration Simvastatin 10 mg 09/18/20 21:00 02/27/21 22:29 Simvastatin 10 Mg Tab PO 10 mg HS DEION Administration Hospitalist Exam Vitals: Vital Signs (12 hours) Temp Pulse Resp BP BP BP Pulse Ox 09/20/20 15:20 98.3 F 75 18 110/63 96 09/20/20 11:10 98 F 73 18 127/67 95 09/20/20 10:47 110/60 09/20/20 07:15 97.4 F L 70 18 110/60 95 Weight Weight 273 lb 5.971 oz Most Recent Monitor Data Heart Rate from ECG 75 NIBP 123/81 NIBP BP-Mean 95 Respiration from ECG 16 SpO2 97 General Appearance: NAD, awake alert Eye: PERRL, anicteric sclera Heart: RRR, no murmur, no gallops, no rubs, normal peripheral pulses Respiratory: CTAB, no wheezes, no rales, no ronchi, normal chest expansion Gastrointestinal: soft, non-tender, non-distended, normal bowel sounds, no palpable masses, no hepatomegaly Extremities: no cyanosis, no edema Neurological: no focal deficits Psychiatric: normal affect, normal behavior, A&O x 3 Hosp A/P (1) Acute CVA (cerebrovascular accident) Code(s): I63.9 - CEREBRAL INFARCTION, UNSPECIFIED Status: Acute (2) Hypertension Code(s): I10 - ESSENTIAL (PRIMARY) HYPERTENSION Status: Chronic (3) Head and neck cancer Code(s): C76.0 - MALIGNANT NEOPLASM OF HEAD, FACE AND NECK Status: Chronic (4) CKD (chronic kidney disease), stage II Code(s): N18.2 - CHRONIC KIDNEY DISEASE, STAGE 2 (MILD) Status: Chronic (5) HLD (hyperlipidemia) Code(s): E78.5 - HYPERLIPIDEMIA, UNSPECIFIED Status: Chronic (6) Hypothyroidism Code(s): E03.9 - HYPOTHYROIDISM, UNSPECIFIED Status: Chronic - Plan * Acute Right Cerebral CVA- he is s/p TPA. Clinically stable. His NIH remains at a 1. * HTN- blood pressure is controlled * CKD- renal function is stable * History of head and Neck cancer- s/p radiation * Hypothyroidism- stable- continue Levothyroxine * Plan is for right CEA tomorrow
[2020-09-20] MEDS: Simvastatin 10 MG TAB PO SCH (21:02)
[2020-09-20] MEDS: Atorvastatin Calcium 40 MG TAB PO SCH (21:02)
[2020-09-21 04:04] VITALS: BP 99/58
[2020-09-21] MEDS: Levothyroxine 150 MCG TAB PO SCH (05:58)
[2020-09-21] MEDS ORDERED: Heparin 5,000 UNITS/ML VIAL ONE (06:32)
[2020-09-21] MEDS ORDERED: Protamine Sulfate 50 MG/5 ML VIAL ONE (06:32)
[2020-09-21] MEDS ORDERED: Fentanyl 100 MCG/2 ML VIAL ONE (06:55)
[2020-09-21] MEDS ORDERED: Midazolam HCl 2 mg/2 ml Vial ONE ×2 (06:55→10:33)
[2020-09-21] MEDS ORDERED: Lidocaine 2% Jelly 5 ML TUBE ONE (07:09)
[2020-09-21] MEDS ORDERED: Lidocaine Viscous Sol 2% 15 ml UD Cup ONE (07:11)
[2020-09-21] MEDS ORDERED: Fentanyl 100 MCG/2 ML VIAL SLOW IVP PRN ×2 (10:19)
[2020-09-21] MEDS ORDERED: Acetaminophen 325 MG TAB PO PRN (10:19)
[2020-09-21] MEDS ORDERED: Ondansetron PF 4 MG/2 ML Vial IVP PRN (10:19)
[2020-09-21] MEDS ORDERED: AFRIN NASAL MIST 15 ML BOT ONE (10:31)
[2020-09-21] MEDS ORDERED: ePHEDrine 50 MG/ML VIAL ONE (10:32)
[2020-09-21] MEDS ORDERED: Ondansetron PF 4 MG/2 ML Vial ONE (10:32)
[2020-09-21] MEDS ORDERED: Dexamethasone 20 MG/5 ML VIAL ONE (10:32)
[2020-09-21] MEDS ORDERED: Rocuronium Bromide 10 MG/ML (10ML VIAL) ONE (10:32)
[2020-09-21] MEDS ORDERED: PHENYLEPHRINE-NS 100 MCG/ML 10 ML SYRINGE ONE (10:32)
[2020-09-21] MEDS ORDERED: PROPOFOL 200 MG/20 ML VIAL ONE (10:32)
[2020-09-21] MEDS ORDERED: Glycopyrrolate 0.2 MG/ML 5 ML SYRINGE ONE (10:32)
[2020-09-21] MEDS ORDERED: Calcium Chloride 1 GM/10 ML Abboject SYRINGE ONE (10:32)
[2020-09-21] MEDS ORDERED: Labetalol HCl 100 MG/20 ML VIAL ONE (11:19)
--- NOTE | 2020-09-21 11:49 | OP ---
DATE OF PROCEDURE: 09/21/2020 PROCEDURE PERFORMED: Right carotid endarterectomy with saphenous vein patch angioplasty. 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 ANESTHESIA: General endotracheal anesthesia. INDICATIONS: The patient is a 60-year-old man, who 10 or 12 years ago underwent chemoradiotherapy in conjunction with a left radical neck dissection for head and neck squamous cell cancer. He has done well and has currently been released from oncologic followup by report. He had known modest carotid stenosis based on previous studies and had been maintained on aspirin and Plavix. He presented with left upper extremity weakness and paresthesias, which improved after the administration of tPA. CT angiography showed bilateral carotid stenoses, worse on the right than on the left. He is now taken to the operating room for endarterectomy. FINDINGS: Slight woody and unyielding quality to the soft tissues of the neck. The ICA was slightly small, but there was good back bleeding. There was complex series of ulcerations associated with plaque at the distal common carotid artery extending through the bulb and into the proximal ICA. At the origin of the ICA, there was some hemorrhagic staining. Pre-shunt clamp time was 6 minutes. Post-shunt time was 32 minutes. Post-shunt clamp time was 3 minutes. NARRATIVE REPORT: After informed consent was obtained, the patient was taken to the operating room and placed in the supine position on the operating table. After the induction of general anesthesia, his greater saphenous vein was ultrasonographically interrogated at the thigh and at the ankle. His neck was extended and rotated towards the left. His right neck and his right lower extremity were prepped and draped in sterile fashion. An oblique incision was made in a skin crease on the left neck using a scalpel with the electrocautery. The incision was carried through the subcutaneous tissue and platysma anterior medial to the sternocleidomastoid muscle and internal jugular vein. The facial vein and other large tributaries to the jugular system crossing the operative field were ligated and divided. A combination of electrocautery, sharp and blunt dissection was used to expose and isolate the common carotid artery. It was dissected free from that sheath and the vagus nerve and looped with a vessel loop and the dissection was carried on proximally somewhat down onto soft vessel well away from the carotid bulb as the carotid bulb proved to be relatively low in the wound. The dissection was then carried distally using the electrocautery for the very superficial soft tissues, but short dissection to isolate the branch vessels of the carotid and to expose and isolate the sling vessels. The sling vessels were ligated and divided. The hypoglossal nerve was identified. The superior thyroidal artery was injured in the process of sharply isolating the external carotid. It was ligated and divided. The external carotid artery was isolated near its origin and looped with a vessel loop. The internal carotid artery was sharply dissected out sufficiently to free it from the somewhat curious tissue intervening between the external and internal carotids. Some bradycardia was encountered with heart rates dropping into the 50s and in the 40s. This resolved with a subadventitial administration of 1% lidocaine at the carotid bulb. With the carotid adequately isolated, the saphenous vein was exposed at the ankle, although preoperatively transcutaneous and ultrasonographic investigation of it suggested that would be of adequate size. It not only was sufficiently spastic to be problematic, but it appeared to be rather thin walled that was abandoned and an incision was made medially on the upper thigh where the saphenous vein was of much better size and quality. A segment of that was harvested while heparin circulated after adequate circulation time of heparin. The internal carotid, common carotid, and external carotid systems were sequentially occluded. A longitudinal arteriotomy was made in the distal common carotid artery and extended proximally and distally with Osborne scissors. An endarterectomy plane was developed at the level of the distal common carotid and was extended with an elevator. The layers with a modest amount of difficulty. Plaque was everted from the external carotid system and broken off distally. The distal feather required scissor tailoring and then at one edge was tacked down with longitudinally oriented mattress sutures. An intraluminal carotid shunt was inserted first distally in the internal carotid and proximally in the common carotid, aspirating a side port of the shunt for allowing antegrade flow through it into the internal carotid system. The irrigation was again used to forcefully irrigate the dissection bed, the endarterectomy bed and the distal feathering proximal transection points. Small amount of remaining debris was removed from the endarterectomy bed and it was again irrigated. The saphenous vein was bivalved and then used as an onlay patch to close the arteriotomy running 6-0 Prolene suture with about a centimeter of arteriotomy left to close at the common carotid level. The shunt was clamped and removed, and vascular control reestablished on the internal carotid at its origin and on the common carotid with vessel loops. Remaining suture line was completed. The vessels of forward and back bled to flush any air or residual debris up the arteriotomy or into the external carotid system. The suture line was secured and antegrade flows allowed first into the external carotid and then into the internal carotid. The suture line was inspected for hemostasis, which appeared to be adequate and there was minimal oozing from the surgical field and the dissection bed, that wound was packed with gauze and attention was returned to the leg to the wounds. They were inspected for hemostasis and the subcutaneous tissue reapproximated with 2-0 Vicryl. The packing was then removed from the neck. Hemostasis appeared to be adequate. The neck wound was closed with running Vicryl for the platysma and subcutaneous tissue and a running 4-0 Vicryl subcuticular suture and Steri-Strips for the skin. The leg incisions were then closed with subcuticular Vicryl and Dermabond. The wounds were dressed. The patient was awakened and extubated in the operating room and taken to the recovery area in good condition, moving all extremities. Job ID: [id number]
[2020-09-21] MEDS: HYDROcodone/Acetaminophen 5/325 mg Tablet PO PRN ×2 (12:57→20:14)
--- NOTE | 2020-09-21 17:45 | PDOC.HOSPP ---
- Subjective Encounter Date: 09/21/20 Subjective: Postop day #0 status post carotid endarterectomy. Patient tolerated the procedure well. - Objective Vital Signs & Weight: Vital Signs (12 hours) Pulse Ox 09/21/20 12:30 100 Weight Weight 273 lb 5.971 oz Most Recent Monitor Data Heart Rate from ECG 100 NIBP 150/86 NIBP BP-Mean 107 Respiration from ECG 21 SpO2 97 I&O: 09/20/20 09/21/20 09/22/20 06:59 06:59 06:59 Intake Total 712 1520 Output Total 550 Balance 162 1520 Result Diagrams: 09/19/20 03:17 09/19/20 03:17 Hospitalist ROS - Medication Medications: Active Medications Generic Name Dose Route Start Last Admin Trade Name Freq PRN Reason Stop Dose Admin Acetaminophen 1,000 mg 09/18/20 14:06 09/20/20 23:35 Acetaminophen 500 Mg Tab PO 1,000 mg Q6H PRN Administration Headache Hydrocodone Bitart/Acetaminophen 2 tab 09/21/20 10:19 09/21/20 12:57 Hydrocodone/Acetaminophen 5/325 Mg Tablet PO 2 tab Q4H PRN Administration Moderate Pain (4-6) Atorvastatin Calcium 40 mg 09/18/20 21:00 09/20/20 21:02 Atorvastatin Calcium 40 Mg Tab PO 40 mg HS DEION Administration Levothyroxine Sodium 150 mcg 09/18/20 06:00 09/21/20 05:58 Levothyroxine 150 Mcg Tab PO Not Given 0600 DEION Simvastatin 10 mg 09/18/20 21:00 09/20/20 21:02 Simvastatin 10 Mg Tab PO 10 mg HS DEION Administration Hospitalist Exam Vitals: Vital Signs (12 hours) Pulse Ox 09/21/20 12:30 100 Weight Weight 273 lb 5.971 oz Most Recent Monitor Data Heart Rate from ECG 100 NIBP 150/86 NIBP BP-Mean 107 Respiration from ECG 21 SpO2 97 General - other findings: Slightly lethargic but answering questions appropriately Eye: PERRL, anicteric sclera ENT: normocephalic atraumatic Heart: RRR, no murmur, no gallops, no rubs Respiratory: CTAB, no wheezes, no rales, no ronchi Gastrointestinal: soft, non-tender, non-distended Extremities: no clubbing, no edema Neurological: cranial nerve grossly intact Psychiatric: normal affect, normal behavior Hosp A/P (1) Acute CVA (cerebrovascular accident) Code(s): I63.9 - CEREBRAL INFARCTION, UNSPECIFIED Status: Acute (2) Hypertensive urgency Code(s): I16.0 - HYPERTENSIVE URGENCY Status: Acute (3) CKD (chronic kidney disease), stage II Code(s): N18.2 - CHRONIC KIDNEY DISEASE, STAGE 2 (MILD) Status: Chronic (4) HLD (hyperlipidemia) Code(s): E78.5 - HYPERLIPIDEMIA, UNSPECIFIED Status: Chronic (5) Head and neck cancer Code(s): C76.0 - MALIGNANT NEOPLASM OF HEAD, FACE AND NECK Status: Chronic (6) Hypertension Code(s): I10 - ESSENTIAL (PRIMARY) HYPERTENSION Status: Chronic (7) Hypothyroidism Code(s): E03.9 - HYPOTHYROIDISM, UNSPECIFIED Status: Chronic - Plan Assessment 60-year-old male with a past medical history of 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 Received TPA and required CCU stay for monitoring. MRI showed punctate areas of acute infarct in the right cerebral hemisphere, consistent with his presentation. Additional stroke work-up revealed 75% stenosis of proximal right ICA. Vascular surgery performed CEA on 09/21. Patient tolerated the procedure well. 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 No focal neurologic deficit at this time
[2020-09-21] MEDS: Atorvastatin Calcium 40 MG TAB PO SCH (20:15)
[2020-09-21] MEDS: Enoxaparin Sodium 40 MG/0.4 ML SYRINGE SC SCH (22:17)
[2020-09-21] MEDS: Aspirin 325 mg Enteric Coated Tablet PO SCH (22:17)
[2020-09-21] MEDS: Clopidogrel Bisulfate 75 MG TAB PO SCH (22:18)
[2020-09-21] MEDS: Sodium Chloride 0.9% 1,000 ML IV SCH (22:18)
[2020-09-21] MEDS: Aspirin Chewable 81 MG TAB PO SCH (22:19)
[2020-09-22] MEDS: HYDROcodone/Acetaminophen 5/325 mg Tablet PO PRN ×2 (02:32→07:50)
[2020-09-22] MEDS: Levothyroxine 150 MCG TAB PO SCH (05:06)
[2020-09-22] MEDS: Sodium Chloride 0.9% 1,000 ML IV SCH (05:07)
[2020-09-22 07:27] VITALS: TEMP 97.7
[2020-09-22] MEDS: Clopidogrel Bisulfate 75 MG TAB PO SCH (07:51)
[2020-09-22] MEDS: Aspirin Chewable 81 MG TAB PO SCH (07:51)
--- NOTE | 2020-09-22 09:29 | CT ---
CTA of the head with IV contrast and 3-D reformatted imaging. CTA of the neck with IV contrast and 3-D reformatted imaging. INDICATION: Left-sided numbness with headache COMPARISON: MRA the neck dated March 09, 2017 FINDINGS: CTA OF THE HEAD WITH CONTRAST: CTA OF THE BRAIN: Right ICA: Patent. Right MCA: Patent. Right CHARIS: Patent. ACOM: Patent. Left ICA: Patent. Left MCA: Patent. Left CHARIS: Patent. PCOMs: Not well-seen on the left. The right PCOM appears patent. Vertebral arteries: Patent. Basilar Artery: Patent. fire sprinkler fitter: Patent. Incidentals: There is prominent paranasal sinus disease involving the right maxillary sinus, right e thmoid air cells and right frontal sinus. The right lens has been replaced. No abnormal enhancement is demonstrated intracranially. CTA OF THE NECK WITH CONTRAST: Right CCA: Patent. Right ICA: There is 75% stenosis involving the proximal right ICA, worsened from the prior exam. No additional focal stenosis is demonstrated. Right Subclavian: Patent. Right Vertebral Artery: Patent. Left CCA: Patent. Left ICA: There is 60% stenosis involving the proximal left internal carotid artery, worsened from t he prior exam. No additional focal stenosis is evident. Left Subclavian: Patent. Left Vertebral Artery: Patent. Aerodigestive tract: Clear. Parotids/Submandibular/Thyroid glands: There is atrophy involving inferior left parotid and left sub mandibular gland. The thyroid gland is also atrophic. Right submandibular gland is also mildly atrophic. Lymph nodes: No lymphadenopathy is evident. The left sternocleidomastoid muscle is surgically absent . Lung Apices: Clear. Bones: No acute osseous abnormality. Incidentals: None. IMPRESSION: 1. No hemodynamically significant stenosis, occlusion or aneurysmal formation evident within the brai n. 2. 75% luminal caliber narrowing involving the proximal right ICA. 3. 60% luminal caliber narrowing involving the proximal left ICA. 4. Postoperative change of the left aspect of the neck with atrophy involving portions of the inferio r left parotid, submandibular glands and thyroid gland possibly related prior radiation therapy. 5. Significant paranasal sinus disease of the right maxillary sinus, right ethmoid air cells and righ t frontal sinus. Transcribed Date/Time: 09/22/2020 9:29 AM
--- NOTE | 2020-09-22 09:50 | PDOC.DS.DS ---
Provider Date of Admission: 09/17/20 20:12 Date of Discharge: 09/22/20 Admitting Provider: Jef Martin MD Consultations: Neurology Primary Care Physician: Edgardo Morales DO Course Hospital Course: Patient is a pleasant is a 60 years old gentleman who has significant past medical histories of head and neck with brain metastasis, hypothyroidism, hypertension, who presented to ED with acute onset of left-sided numbness. Patient was status post TPA, and required CCU stay for more close monitor. Further work-up including MRI, show punctated area of acute infarct in the right cerebral hemisphere, consistent with his presentation. Further work-up including CTA of the head and neck, revealed 75% stenosis of the proximal right ICA. Vascular surgery was consulted. Patient subsequently underwent CTA on 09/21. Patient tolerated procedure well. Neurology was consulted as well. Ari coyle currently is on dual antiplatelet therapy. We recommend to discontinue pravastatin, and replaced with more potent statin therapy, Lipitor. Patient to follow-up with his PCP, and follow-up with vascular surgery for postop follow- up. At this time patient completely asymptomatic. He is stable to discharge home. Plan of care discussed with the patient as well as his at bedside. Both verbalized understanding and agreeable with the plan. Resuscitation Status: 09/18/20 01:13 Resuscitation Status Routine Resuscitation Status: FULL: Full Resuscitation Lab Results: 09/19/20 03:17 09/19/20 03:17 Vitals: Vital Signs (12 hours) Temp Pulse Ox 09/22/20 07:11 93 L 09/22/20 07:00 97.7 F 09/22/20 04:00 97.6 F 09/22/20 00:00 98.0 F Weight Weight 273 lb 5.971 oz Most Recent Monitor Data Heart Rate from ECG 91 NIBP 141/101 NIBP BP-Mean 114 Respiration from ECG 18 SpO2 89 Physical Exam: The patient was seen and examined on the day of discharge. General Appearance: NAD Eye: PERRL ENT: normocephalic atraumatic Neck: supple Respiratory: CTAB Cardiovascular: RRR Gastrointestinal: soft, non-tender Extremities: no cyanosis Skin: normal turgor Neurological: cranial nerve grossly intact Musculoskeletal: normal tone PSYCH: normal affect, normal behavior, A&O x 3 Problem Time Spent in discharge related activities (mins): 35 (1) Acute CVA (cerebrovascular accident) Code(s): I63.9 - CEREBRAL INFARCTION, UNSPECIFIED Status: Acute (2) Hypertensive urgency Code(s): I16.0 - HYPERTENSIVE URGENCY Status: Acute (3) CKD (chronic kidney disease), stage II Code(s): N18.2 - CHRONIC KIDNEY DISEASE, STAGE 2 (MILD) Status: Chronic (4) HLD (hyperlipidemia) Code(s): E78.5 - HYPERLIPIDEMIA, UNSPECIFIED Status: Chronic (5) Head and neck cancer Code(s): C76.0 - MALIGNANT NEOPLASM OF HEAD, FACE AND NECK Status: Chronic (6) Hypertension Code(s): I10 - ESSENTIAL (PRIMARY) HYPERTENSION Status: Chronic (7) Hypothyroidism Code(s): E03.9 - HYPOTHYROIDISM, UNSPECIFIED Status: Chronic Plan Prescriptions: HYDROcodone Bit/APAP 5/325 [Nelson 5/325] 1 tab PO Q6HR PRN #30 tab PRN Reason: Pain Atorvastatin Calcium [Lipitor] 40 mg PO DAILY #30 tab HYDROcodone Bit/APAP 5/325 [Nelson] 1 tab PO Q4H PRN #30 tab PRN Reason: Mild Pain (1-3) Home Medications: Medication Instructions Recorded Confirmed Type Aspirin Chewable [Aspirin Chewable 81 mg PO DAILY 09/18/20 09/18/20 History Tablet] Carvedilol [Coreg] 12.5 mg PO DAILY 09/18/20 09/18/20 History Clopidogrel Bisulfate [Clopidogrel] 75 mg PO DAILY 09/18/20 09/18/20 History Aspirin Chewable [Aspirin Chewable 81 mg PO QAM tab 09/22/20 Rx Tablet] Atorvastatin Calcium [Lipitor] 40 mg PO DAILY #30 tab 09/22/20 Rx Clopidogrel Bisulfate [Plavix] 75 mg PO QAM tab 09/22/20 Rx HYDROcodone Bit/APAP 5/325 [Nelson 1 tab PO Q6HR PRN #30 tab 09/22/20 Rx 5/325] HYDROcodone Bit/APAP 5/325 [Nelson] 1 tab PO Q4H PRN #30 tab 09/22/20 Rx Levothyroxine Sodium [Synthroid] 150 mcg PO 0600 tab 09/22/20 Rx Allergies: No Known Allergies Allergy (Verified 09/18/20 00:21) Discharge Instructions:: We have changed your cholesterol medication to Lipitor for better control. Goal LDL<70 (your current LDL 93) Activity:: Activity as Tolerated Nourishment:: Heart Healthy Diet Referrals: Kwan Evangelista MD [Active] - Edgardo Morales DO [Primary Care Provider] - Disposition: HOME Quality CORE MEASURES:: Stroke/TIA Did you prescribe antithrombotic therapy?: Yes Did you prescribe anticoagulant for A Fib/Flutter?: No Specify reason for no DC anticoagulant: Treatment not indicated (pt has no hx of afib/aflutter) Did you prescribe a statin medication?: Yes
== END 2020-09-22 10:20 | disposition home or self-care (01) | DRG 38 ==
LOC: ERS 18:59 → CCU 20:12 → 3SE 09-19 15:08 → CCU 09-21 07:58
PROVIDERS: ADMIT Internal Medicine; ATTEND Family Medicine
PROC: 3E03317 Introduction of Other Thrombolytic into Peripheral Vein, Percutaneous Approach (ICD-10-PCS; 2020-09-17)
PROC: 03CH0ZZ Extirpation of Matter from Right Common Carotid Artery, Open Approach (ICD-10-PCS; principal; 2020-09-21)
PROC: 03UH07Z Supplement Right Common Carotid Artery with Autologous Tissue Substitute, Open Approach (ICD-10-PCS; 2020-09-21)
PROC: 06BP0ZZ Excision of Right Saphenous Vein, Open Approach (ICD-10-PCS; 2020-09-21)
DX: I63.231 Cerebral infarction due to unspecified occlusion or stenosis of right carotid arteries (principal); G81.94 Hemiplegia, unspecified affecting left nondominant side; R29.702 NIHSS score 2; R27.8 Other lack of coordination; I16.0 Hypertensive urgency; N18.2 Chronic kidney disease, stage 2 (mild); E78.5 Hyperlipidemia, unspecified; E03.9 Hypothyroidism, unspecified; C76.0 Malignant neoplasm of head, face and neck; F32.9 Major depressive disorder, single episode, unspecified; I12.9 Hypertensive chronic kidney disease with stage 1 through stage 4 chronic kidney disease, or unspecified chronic kidney disease; Z79.890 Hormone replacement therapy; Z79.01 Long term (current) use of anticoagulants; Z79.899 Other long term (current) drug therapy; Z79.82 Long term (current) use of aspirin; Z92.3 Personal history of irradiation; Z92.21 Personal history of antineoplastic chemotherapy
CPT/HCPCS: 0240U; 36415; 36416; 70450; 70496; 70498; 70553; 80048; 80053; 80061; 82550; 83036; 84484; 85025; 85610; 85730; 86850; 86900; 86901; 93005; 93306; 96365; 96375; 96376; 99292; A9579; J0690; J1100; J1642; J1644; J1650; J2250; J2405; J2704; J2720; J2997; J3010; J3490; Q9967

== ENCOUNTER 2020-09-25 15:24 | Outpatient (CLI) | payer BC | END 2020-09-25 15:25 | disposition home or self-care (01) | LOC: BICRAD 15:24 | PROVIDERS: ATTEND Physician Assistant | DX: R07.9 Chest pain, unspecified (principal); R06.02 Shortness of breath | CPT/HCPCS: 71046 ==

== ENCOUNTER 2020-10-01 15:00 | Outpatient (CLI) | payer BC ==
[2020-10-01 16:41] LABS: Hemoglobin 13.6 g/dL (13.5-17.5); Mean Corpuscular HGB CONC 33.7 g/dL (32.0-36.0); Mean Corpuscular Hemoglobin 29.6 pg (27.0-33.0); Mean Corpuscular Volume 87.8 fl (81.2-95.1); Mean Platelet Volume 8.5 fl (7.4-10.4); Platelet Count 210 10x3/uL (150-450); RBC Distribution Width 12.2 % (11.5-14.5); White Blood Cell (WBC) Count 7.7 10x3/uL (3.5-10.5)
[2020-10-01 16:51] LABS: PTT 26.5 sec (22.0-33.0); Prothrombin Time 10.7 sec (9.5-12.1)
[2020-10-01 17:04] LABS: Anion Gap 10 mmol/L (10-20); BUN (Urea Nitrogen) 8 mg/dL (8.4-25.7); Calc. Creatinine Clearance 0 mL/min (70-130); Calcium 9.2 mg/dL (7.8-10.44); Carbon Dioxide 30 mmol/L (22-29); Chloride 103 mmol/L (98-107); Glucose 91 mg/dL (70-105); Potassium 4.3 mmol/L (3.5-5.1); Sodium 139 mmol/L (136-145)
[2020-10-02 04:33] LABS: SARS-CoV-2 PCR by NAA Not Detected (NotDetected)
== END 2020-10-01 15:01 | disposition home or self-care (01) ==
LOC: LABBT 15:00
PROVIDERS: ATTEND Thoracic Surgery (Cardiothoracic Vascular Surgery)
DX: Z01.812 Encounter for preprocedural laboratory examination (principal); Z20.822 Contact with and (suspected) exposure to COVID-19; M96.841 Postprocedural hematoma of a musculoskeletal structure following other procedure
CPT/HCPCS: 80048; 85027; 85610; 85730; 86850; 86900; 86901; 87635; U0003; U0005

== ENCOUNTER 2020-10-01 15:00 | Inpatient (IN) | payer BC ==
[2020-10-02] MEDS ORDERED: Fentanyl 100 MCG/2 ML VIAL ONE ×3 (06:32→08:55)
[2020-10-02] MEDS ORDERED: Ondansetron HCl/PF 4 MG/2 ML Vial IVP PRN (07:06)
[2020-10-02] MEDS ORDERED: Rocuronium Bromide 10 MG/ML (10ML VIAL) ONE (07:32)
[2020-10-02] MEDS ORDERED: Glycopyrrolate 0.2 MG/ML 5 ML SYRINGE ONE (07:32)
[2020-10-02] MEDS ORDERED: PHENYLEPHRINE-NS 100 MCG/ML 10 ML SYRINGE ONE (07:32)
[2020-10-02] MEDS ORDERED: Ketorolac Tromethamine 30 MG/ML VIAL ONE (07:32)
[2020-10-02] MEDS ORDERED: Ondansetron PF 4 MG/2 ML Vial ONE (07:32)
[2020-10-02] MEDS ORDERED: Dexamethasone 20 MG/5 ML VIAL ONE (07:32)
[2020-10-02] MEDS ORDERED: Lidocaine 1% PF 5 ML VIAL ONE (07:32)
[2020-10-02] MEDS ORDERED: PROPOFOL 200 MG/20 ML VIAL ONE (07:32)
[2020-10-02] MEDS ORDERED: Acetaminophen 325 MG TAB PO PRN (08:33)
[2020-10-02] MEDS ORDERED: Ondansetron PF 4 MG/2 ML Vial IVP PRN (08:33)
[2020-10-02] MEDS: Aggrenox 200-25mg CAP PO SCH ×2 (09:00→20:28)
[2020-10-02] MEDS ORDERED: Labetalol HCl 100 MG/20 ML VIAL ONE (09:28)
[2020-10-02] MEDS ORDERED: Labetalol HCl 100 MG/20 ML VIAL SLOW IVP SCH ×2 (09:45→11:15)
[2020-10-02] MEDS: HYDROcodone/Acetaminophen 5/325 mg Tablet PO PRN ×2 (11:36→20:10)
[2020-10-02] MEDS: Sodium Chloride 0.9% 1,000 ML IV SCH ×2 (11:41→20:13)
[2020-10-02 12:09] VITALS: BMI 35.6
[2020-10-02] MEDS: Carvedilol 6.25 MG TAB PO SCH (12:17)
[2020-10-02] MEDS ORDERED: Atorvastatin Calcium 40 MG TAB PO SCH (21:00)
[2020-10-03] MEDS: HYDROcodone/Acetaminophen 5/325 mg Tablet PO PRN (02:47)
[2020-10-03] MEDS ORDERED: Levothyroxine 150 MCG TAB PO SCH (06:00)
[2020-10-03] MEDS: Sodium Chloride 0.9% 1,000 ML IV SCH (07:14)
[2020-10-03] MEDS: Carvedilol 6.25 MG TAB PO SCH (08:52)
[2020-10-03 08:55] VITALS: BP 145/92
[2020-10-03 09:28] VITALS: TEMP 98
[2020-10-03] MEDS: Aggrenox 200-25mg CAP PO SCH (10:43)
== END 2020-10-03 11:00 | disposition home or self-care (01) | DRG 909 ==
LOC: SURG A 10-02 05:51 → CCU 10-02 10:59 → EDSTATUS 10-02 15:00
PROVIDERS: ADMIT Thoracic Surgery (Cardiothoracic Vascular Surgery); ATTEND Thoracic Surgery (Cardiothoracic Vascular Surgery)
PROC: 03CH0ZZ Extirpation of Matter from Right Common Carotid Artery, Open Approach (ICD-10-PCS; principal; 2020-10-02)
PROC: 03CK0ZZ Extirpation of Matter from Right Internal Carotid Artery, Open Approach (ICD-10-PCS; 2020-10-02)
PROC: 03CM0ZZ Extirpation of Matter from Right External Carotid Artery, Open Approach (ICD-10-PCS; 2020-10-02)
DX: L76.32 Postprocedural hematoma of skin and subcutaneous tissue following other procedure (principal); I10 Essential (primary) hypertension; C09.1 Malignant neoplasm of tonsillar pillar (anterior) (posterior); Z79.890 Hormone replacement therapy; Z79.899 Other long term (current) drug therapy; Z79.02 Long term (current) use of antithrombotics/antiplatelets; Z86.73 Personal history of transient ischemic attack (TIA), and cerebral infarction without residual deficits; Y83.8 Other surgical procedures as the cause of abnormal reaction of the patient, or of later complication, without mention of misadventure at the time of the procedure
CPT/HCPCS: 80048; 85027; 85610; 85730; 86850; 86900; 86901; 87635; 94640; J1100; J1885; J2405; J2704; J3010; J7620; U0003; U0005

== ENCOUNTER 2020-10-08 13:22 | Emergency (ER) | payer BC ==
[2020-10-08 14:35] LABS: #Eosinphils 0.1 thou/uL (0.0-0.7); #Lymphocytes 1.4 thou/uL (1.20-3.40); #Monocytes 0.7 thou/uL (0.11-0.59); %Basophils 0.4 % (0.0-1.0); %Eosinophils 1.1 % (0.0-10.0); %Lymphocytes 15.1 % (21.0-51.0); %Monocytes 7.8 % (0.0-10.0); %Neutrophils 75.6 % (42.0-75.0); Mean Corpuscular HGB CONC 33.2 g/dL (32.0-36.0); Mean Corpuscular Hemoglobin 29.6 pg (27.0-31.0); Mean Corpuscular Volume 89.1 fL (78.0-98.0); Mean Platelet Volume 5.8 fL (7.4-10.4); Platelet Count 244 thou/uL (130-400); RBC Distribution Width 11.9 % (11.5-14.5); Red Blood Cell (RBC) Count 4.73 mill/uL (4.70-6.10); White Blood Cell (WBC) Count 9.3 thou/uL (4.8-10.8)
[2020-10-08] MEDS ORDERED: Iopamidol-370 76% 500 ML 1 ML ONE (14:51)
[2020-10-08 14:58] LABS: ALT (SGPT) 20 U/L (8-55); AST (SGOT) 19 U/L (5-34); Albumin 3.8 g/dL (3.5-5.0); Alkaline Phosphatase 73 U/L (40-110); Anion Gap 9 mmol/L (10-20); BUN (Urea Nitrogen) 9 mg/dL (8.4-25.7); Bilirubin, Total 0.6 mg/dL (0.2-1.2); Calc. Creatinine Clearance 0 mL/min (70-130); Calcium 8.7 mg/dL (7.8-10.44); Carbon Dioxide 31 mmol/L (22-29); Chloride 104 mmol/L (98-107); Globulin 2.4 g/dL (2.4-3.5); Glucose 117 mg/dL (70-105); Magnesium 1.8 mg/dL (1.6-2.6); Potassium 5.3 mmol/L (3.5-5.1); Protein, Total 6.2 g/dL (6.0-8.3); Sodium 139 mmol/L (136-145)
== END 2020-10-08 17:40 | disposition home or self-care (01) ==
LOC: ERS 13:22
DX: R55 Syncope and collapse (principal)
CPT/HCPCS: 36415; 70498; 71045; 80053; 83735; 84484; 85025; 93005; Q9967

== ENCOUNTER 2020-11-02 09:36 | Outpatient (CLI) | payer BC ==
[2020-11-02 18:59] LABS: SARS-CoV-2 PCR by NAA Not Detected (NotDetected)
== END 2020-11-02 09:37 | disposition home or self-care (01) ==
LOC: LABBT 09:36
PROVIDERS: ATTEND Family Medicine
DX: Z01.812 Encounter for preprocedural laboratory examination (principal); R13.10 Dysphagia, unspecified; Z20.822 Contact with and (suspected) exposure to COVID-19
CPT/HCPCS: 87635; U0003; U0005

== ENCOUNTER 2020-11-04 08:48 | Outpatient (CLI) | payer BC | END 2020-11-04 08:49 | disposition home or self-care (01) | PROVIDERS: ATTEND Family Medicine | DX: I69.391 Dysphagia following cerebral infarction (principal) | CPT/HCPCS: 74230 ==

== ENCOUNTER 2021-04-05 10:34 | Outpatient (CLI) | payer BC ==
[2021-04-05 22:21] LABS: SARS-CoV-2 PCR by NAA Not Detected (NotDetected)
== END 2021-04-05 10:35 | disposition home or self-care (01) ==
LOC: LABBT 10:34
PROVIDERS: ATTEND Family Medicine
DX: Z01.812 Encounter for preprocedural laboratory examination (principal); Z20.822 Contact with and (suspected) exposure to COVID-19
CPT/HCPCS: U0003; U0005

== ENCOUNTER 2021-04-07 08:55 | Outpatient (CLI) | payer BC | END 2021-04-07 08:56 | disposition home or self-care (01) | PROVIDERS: ATTEND Family Medicine | DX: I69.391 Dysphagia following cerebral infarction (principal) | CPT/HCPCS: 74230 ==

== ENCOUNTER 2022-01-14 16:18 | Emergency (ER) | payer BC ==
[2022-01-14 16:55] LABS: #Eosinphils 0.1 thou/uL (0.0-0.7); #Lymphocytes 2.2 thou/uL (1.20-3.40); #Monocytes 0.8 thou/uL (0.11-0.59); #Neutrophils 3.7 thou/uL (1.40-6.50); %Basophils 0.6 % (0.0-1.0); %Eosinophils 1.4 % (0.0-10.0); %Lymphocytes 32.2 % (21.0-51.0); %Monocytes 12.1 % (0.0-10.0); %Neutrophils 53.8 % (42.0-75.0); Mean Corpuscular HGB CONC 33.4 g/dL (32.0-36.0); Mean Corpuscular Hemoglobin 30.6 pg (27.0-31.0); Mean Corpuscular Volume 91.7 fL (78.0-98.0); Mean Platelet Volume 6.1 fL (7.4-10.4); Platelet Count 213 thou/uL (130-400); RBC Distribution Width 11.7 % (11.5-14.5); Red Blood Cell (RBC) Count 4.91 mill/uL (4.70-6.10); White Blood Cell (WBC) Count 6.8 thou/uL (4.8-10.8)
[2022-01-14 17:02] LABS: INR-International Normal Ratio 0.9; Prothrombin Time 12.6 sec (12.0-14.7)
[2022-01-14 17:18] LABS: ALT (SGPT) 15 U/L (8-55); AST (SGOT) 14 U/L (5-34); Albumin 4.1 g/dL (3.5-5.0); Alkaline Phosphatase 88 U/L (40-110); Anion Gap 13 mmol/L (10-20); BUN (Urea Nitrogen) 13 mg/dL (8.4-25.7); Bilirubin, Total 0.7 mg/dL (0.2-1.2); Calc. Creatinine Clearance 0 mL/min (70-130); Calcium 9.4 mg/dL (7.8-10.44); Carbon Dioxide 29 mmol/L (22-29); Chloride 100 mmol/L (98-107); Globulin 2.7 g/dL (2.4-3.5); Glucose 94 mg/dL (70-105); Potassium 4.8 mmol/L (3.5-5.1); Protein, Total 6.8 g/dL (6.0-8.3); Sodium 137 mmol/L (136-145)
== END 2022-01-14 21:57 | disposition home or self-care (01) ==
LOC: ERS 16:18
DX: R42 Dizziness and giddiness (principal); J32.9 Chronic sinusitis, unspecified; Z85.89 Personal history of malignant neoplasm of other organs and systems; Z86.73 Personal history of transient ischemic attack (TIA), and cerebral infarction without residual deficits; Z79.899 Other long term (current) drug therapy
CPT/HCPCS: 36415; 70450; 71045; 80053; 84484; 85025; 85610; 85730; 93005

== ENCOUNTER → 2022-01-21 | Outpatient (CLI) | payer BC | LOC: SCSMRI 09:30 | PROVIDERS: ATTEND Family Medicine | DX: G44.52 New daily persistent headache (NDPH) (principal); R42 Dizziness and giddiness; R53.1 Weakness; Z86.73 Personal history of transient ischemic attack (TIA), and cerebral infarction without residual deficits; Z92.3 Personal history of irradiation | CPT/HCPCS: 70551 ==

== ENCOUNTER 2022-07-10 12:55 | Inpatient (IN) | payer BC ==
[2022-07-10 13:28] LABS: #Eosinphils 0.1 thou/uL (0.0-0.7); #Lymphocytes 1.3 thou/uL (1.20-3.40); #Monocytes 0.4 thou/uL (0.11-0.59); #Neutrophils 3.8 thou/uL (1.40-6.50); %Basophils 0.4 % (0.0-1.0); %Lymphocytes 23.5 % (21.0-51.0); %Monocytes 6.7 % (0.0-10.0); %Neutrophils 67.4 % (42.0-75.0); Hemoglobin 14.9 g/dL (14.0-18.0); Mean Corpuscular HGB CONC 34.7 g/dL (32.0-36.0); Mean Corpuscular Hemoglobin 31.2 pg (27.0-31.0); Mean Corpuscular Volume 90.2 fl (78.0-98.0); Platelet Count 208 10x3/uL (130-400); RBC Distribution Width 12.3 % (11.5-14.5); Red Blood Cell (RBC) Count 4.77 mill/uL (4.70-6.10); White Blood Cell (WBC) Count 5.6 10x3/uL (4.8-10.8)
[2022-07-10 13:39] LABS: INR-International Normal Ratio 0.9; PTT 29.1 sec (22.9-36.1); Prothrombin Time 12.6 sec (12.0-14.7)
[2022-07-10 13:48] LABS: Acetaminophen Less than 10.0 mcg/mL (10.0-30.0); Alcohol Less than 10 mg/dL (Less than 10); Salicylate Less than 8.0 mg/dL (15.0-30.0)
[2022-07-10 13:49] LABS: ALT (SGPT) 19 U/L (8-55); AST (SGOT) 15 U/L (5-34); Alkaline Phosphatase 85 U/L (40-110); Anion Gap 15 mmol/L (10-20); BUN (Urea Nitrogen) 10 mg/dL (8.4-25.7); Bilirubin, Total 0.8 mg/dL (0.2-1.2); Calc. Creatinine Clearance 0 mL/min (70-130); Carbon Dioxide 25 mmol/L (23-31); Chloride 100 mmol/L (98-107); Estimated GFR 72; Globulin 2.4 g/dL (2.4-3.5); Glucose 251 mg/dL (80-115); Protein, Total 6.4 g/dL (5.8-8.1); Sodium 136 mmol/L (136-145)
[2022-07-10] MEDS ORDERED: Aspirin 325 MG TAB ONE (13:58)
[2022-07-10] MEDS ORDERED: Ibuprofen 200 MG TAB ONE (15:00)
[2022-07-10] MEDS ORDERED: HYDROcodone/Acetaminophen 5/325 mg Tablet PO PRN ×2 (16:16)
[2022-07-10] MEDS ORDERED: Bisacodyl 5 MG TAB PO PRN (16:16)
[2022-07-10 16:55] VITALS: BMI 36.7
[2022-07-10] MEDS ORDERED: Metoprolol Tartrate 25 MG TAB PO SCH (21:00)
[2022-07-10] MEDS ORDERED: Atorvastatin Calcium 40 MG TAB PO SCH (21:00)
[2022-07-10] MEDS: Aggrenox 200-25mg CAP PO SCH (22:24)
[2022-07-11] MEDS: Levothyroxine 150 MCG TAB PO SCH (05:34)
[2022-07-11 06:29] LABS: Anion Gap 10 mmol/L (10-20); BUN (Urea Nitrogen) 9 mg/dL (8.4-25.7); Calc. Creatinine Clearance 145 mL/min (70-130); Calcium 8.9 mg/dL (7.8-10.44); Carbon Dioxide 28 mmol/L (23-31); Cardiac Risk 3.6 (Less than 4.5); Chloride 100 mmol/L (98-107); Cholesterol 137 mg/dl (< 200 Desired); Estimated GFR 88; Glucose 137 mg/dL (80-115); HDL Cholesterol 38 mg/dL (>60 Neg Risk); LDL Cholesterol, Calculated 78 mg/dL; Sodium 134 mmol/L (136-145); Triglycerides 103 mg/dL (Less than 150)
[2022-07-11 06:39] LABS: #Basophils 0.1 thou/uL (0.0-0.2); #Eosinphils 0.2 thou/uL (0.0-0.7); #Lymphocytes 1.3 thou/uL (1.20-3.40); #Monocytes 0.5 thou/uL (0.11-0.59); #Neutrophils 3.2 thou/uL (1.40-6.50); %Basophils 1.1 % (0.0-1.0); %Lymphocytes 25.6 % (21.0-51.0); %Neutrophils 61.5 % (42.0-75.0); Hemoglobin 13.9 g/dL (14.0-18.0); Mean Corpuscular HGB CONC 34.5 g/dL (32.0-36.0); Mean Corpuscular Hemoglobin 32.3 pg (27.0-31.0); Mean Corpuscular Volume 93.6 fl (78.0-98.0); Platelet Count 162 10x3/uL (130-400); RBC Distribution Width 12.5 % (11.5-14.5); White Blood Cell (WBC) Count 5.3 10x3/uL (4.8-10.8)
[2022-07-11] MEDS: Enoxaparin Sodium 40 MG/0.4 ML SYRINGE SC SCH (09:10)
[2022-07-11] MEDS: Aggrenox 200-25mg CAP PO SCH ×2 (09:12→20:46)
[2022-07-11] MEDS: Atorvastatin Calcium 40 MG TAB PO SCH (20:46)
[2022-07-12 05:40] LABS: #Eosinphils 0.1 thou/uL (0.0-0.7); #Lymphocytes 1.6 thou/uL (1.20-3.40); #Monocytes 0.6 thou/uL (0.11-0.59); #Neutrophils 2.9 thou/uL (1.40-6.50); %Basophils 0.2 % (0.0-1.0); %Eosinophils 2.5 % (0.0-10.0); %Lymphocytes 31.1 % (21.0-51.0); %Monocytes 10.9 % (0.0-10.0); %Neutrophils 55.3 % (42.0-75.0); Hemoglobin 14.2 g/dL (14.0-18.0); Mean Corpuscular HGB CONC 34.8 g/dL (32.0-36.0); Mean Corpuscular Hemoglobin 31.5 pg (27.0-31.0); Mean Corpuscular Volume 90.5 fl (78.0-98.0); Mean Platelet Volume 5.8 fL (7.4-10.4); Platelet Count 177 10x3/uL (130-400); RBC Distribution Width 12.3 % (11.5-14.5); Red Blood Cell (RBC) Count 4.51 mill/uL (4.70-6.10); White Blood Cell (WBC) Count 5.3 10x3/uL (4.8-10.8)
[2022-07-12 05:49] LABS: Anion Gap 12 mmol/L (10-20); BUN (Urea Nitrogen) 13 mg/dL (8.4-25.7); Calc. Creatinine Clearance 125 mL/min (70-130); Calcium 9.4 mg/dL (7.8-10.44); Carbon Dioxide 29 mmol/L (23-31); Chloride 99 mmol/L (98-107); Estimated GFR 73; Glucose 135 mg/dL (80-115); Potassium 4.4 mmol/L (3.5-5.1); Sodium 136 mmol/L (136-145)
[2022-07-12 05:59] LABS: Hemoglobin A1c 7.1 % (4.0-6.0)
[2022-07-12] MEDS: Levothyroxine 150 MCG TAB PO SCH (06:08)
[2022-07-12] MEDS: Aggrenox 200-25mg CAP PO SCH (10:13)
[2022-07-12] MEDS: Enoxaparin Sodium 40 MG/0.4 ML SYRINGE SC SCH (10:15)
[2022-07-12] MEDS: Acetaminophen 325 MG TAB PO PRN ×2 (11:51→21:29)
[2022-07-12] MEDS ORDERED: Iopamidol 370 76% 100 ML VIAL ONE (16:03)
[2022-07-12] MEDS: Atorvastatin Calcium 40 MG TAB PO SCH (20:42)
[2022-07-13] MEDS: Levothyroxine 150 MCG TAB PO SCH (05:59)
[2022-07-13] MEDS ORDERED: Aspirin 81 mg Enteric Coated Tablet PO SCH (09:00)
[2022-07-13] MEDS ORDERED: Loratadine 10 MG TAB PO SCH (09:00)
[2022-07-13] MEDS ORDERED: Clopidogrel Bisulfate 75 MG TAB PO SCH (09:00)
[2022-07-13] MEDS: Enoxaparin Sodium 40 MG/0.4 ML SYRINGE SC SCH (09:04)
[2022-07-13] MEDS ORDERED: Lidocaine 1% (PF) 30 ML VIAL ONE (12:24)
[2022-07-13 15:56] VITALS: BP 134/95; TEMP 97.5
== END 2022-07-13 17:25 | disposition home or self-care (01) | DRG 41 ==
LOC: ERS 12:55 → 2SW 15:07 → OBSVTOIN 07-11 11:06 → NEURO 07-12 17:15
PROVIDERS: ADMIT Internal Medicine; ATTEND Emergency Medicine
PROC: 4A10X4Z Monitoring of Central Nervous Electrical Activity, External Approach (ICD-10-PCS; 2022-07-11)
PROC: 0JH602Z Insertion of Monitoring Device into Chest Subcutaneous Tissue and Fascia, Open Approach (ICD-10-PCS; principal; 2022-07-13)
DX: I63.9 Cerebral infarction, unspecified (principal); G81.94 Hemiplegia, unspecified affecting left nondominant side; E03.9 Hypothyroidism, unspecified; E78.5 Hyperlipidemia, unspecified; N18.2 Chronic kidney disease, stage 2 (mild); I12.9 Hypertensive chronic kidney disease with stage 1 through stage 4 chronic kidney disease, or unspecified chronic kidney disease; E11.22 Type 2 diabetes mellitus with diabetic chronic kidney disease; F32.A Depression, unspecified; F41.9 Anxiety disorder, unspecified; Z20.822 Contact with and (suspected) exposure to COVID-19; E66.9 Obesity, unspecified; Z68.37 Body mass index [BMI] 37.0-37.9, adult; Z86.73 Personal history of transient ischemic attack (TIA), and cerebral infarction without residual deficits; Z98.890 Other specified postprocedural states; Z79.899 Other long term (current) drug therapy
CPT/HCPCS: 33285; 36415; 36416; 70450; 70498; 70551; 80048; 80053; 80061; 80307; 83036; 84443; 84484; 85025; 85610; 85730; 93005; 93010; 93306; 93880; 95712; 95819; 95957; 96372; G0378; J1650; J2001; Q9967; U0003; U0005

== ENCOUNTER 2022-08-29 08:36 | Outpatient (CLI) | payer BC ==
[2022-08-29 09:55] LABS: Hemoglobin 14.7 g/dL (13.5-17.5); Mean Corpuscular HGB CONC 34.7 g/dL (32.0-36.0); Mean Corpuscular Hemoglobin 30.4 pg (27.0-33.0); Mean Corpuscular Volume 87.8 fl (81.2-95.1); Mean Platelet Volume 8.5 fl (7.4-10.4); Platelet Count 196 10x3/uL (150-450); RBC Distribution Width 12.3 % (11.5-14.5); Red Blood Cell (RBC) Count 4.83 10x6/uL (4.32-5.72); White Blood Cell (WBC) Count 5.7 10x3/uL (3.5-10.5)
[2022-08-29 10:09] LABS: Anion Gap 14 mmol/L (10-20); BUN (Urea Nitrogen) 12 mg/dL (8.4-25.7); Calc. Creatinine Clearance 0 mL/min (70-130); Calcium 9.2 mg/dL (7.8-10.44); Carbon Dioxide 29 mmol/L (23-31); Chloride 100 mmol/L (98-107); Estimated GFR 67; Glucose 158 mg/dL (80-115); Potassium 4.8 mmol/L (3.5-5.1); Sodium 138 mmol/L (136-145)
== END 2022-08-29 08:37 | disposition home or self-care (01) ==
LOC: LABBT 08:36
PROVIDERS: ATTEND Thoracic Surgery (Cardiothoracic Vascular Surgery)
DX: Z01.812 Encounter for preprocedural laboratory examination (principal); I65.22 Occlusion and stenosis of left carotid artery
CPT/HCPCS: 80048; 85027

== ENCOUNTER 2022-08-30 08:39 | Inpatient (IN) | payer BC ==
[2022-08-30] MEDS ORDERED: Phenylephrine 10 MG/ML VIAL ONE ×4 (11:00→11:46)
[2022-08-30] MEDS ORDERED: Nitroglycerin 100MG/250ML BOT 0 ML ONE (11:04)
[2022-08-30] MEDS ORDERED: Heparin 10,000 UNITS/ 10 ML VIAL ONE (11:04)
[2022-08-30] MEDS ORDERED: Lidocaine 1% (PF) 30 ML VIAL ONE (11:04)
[2022-08-30] MEDS ORDERED: Adenosine 6 MG/2 ML VIAL ONE (11:04)
[2022-08-30] MEDS ORDERED: Atropine Sulfate 1 mg/10 ml Syringe ONE ×2 (11:39→11:46)
[2022-08-30] MEDS ORDERED: PHENYLEPHRINE-NS 100 MCG/ML 10 ML SYRINGE ONE (11:53)
[2022-08-30] MEDS ORDERED: Midazolam HCl 2 mg/2 ml Vial ONE (12:10)
[2022-08-30] MEDS ORDERED: FENTANYL 50 MCG/ML 1 ML VIAL ONE (12:11)
[2022-08-30] MEDS ORDERED: Acetaminophen 325 MG TAB PO PRN (13:26)
[2022-08-30] MEDS ORDERED: traMADol HCl 50 MG TAB PO PRN (13:26)
[2022-08-30] MEDS ORDERED: Ipratropium/Albuterol 3 ML NEB NEB PRN (13:26)
[2022-08-30] MEDS ORDERED: Phenylephrine 40 MG in Sodium Chloride 0.9% 250 ML 250 ML IVPB PRN (13:26)
[2022-08-30] MEDS ORDERED: Ondansetron PF 4 MG/2 ML Vial IVP PRN (13:26)
[2022-08-30] MEDS: Sodium Chloride 0.9% 1,000 ML IV SCH ×2 (14:40→23:06)
[2022-08-30] MEDS ORDERED: Iopamidol 370 76% 100 ML VIAL ONE (14:54)
[2022-08-30] MEDS ORDERED: Atorvastatin Calcium 20 MG TAB PO SCH (21:00)
[2022-08-30 23:09] VITALS: TEMP 98.4
[2022-08-31] MEDS ORDERED: Levothyroxine 150 MCG TAB PO SCH (06:00)
[2022-08-31] MEDS ORDERED: Aspirin Chewable 81 MG TAB PO SCH (09:00)
[2022-08-31] MEDS ORDERED: Clopidogrel Bisulfate 75 MG TAB PO SCH (09:00)
== END 2022-08-31 09:10 | disposition home or self-care (01) | DRG 36 ==
LOC: SDC 08:39 → CCU 13:37
PROVIDERS: ADMIT Thoracic Surgery (Cardiothoracic Vascular Surgery); ATTEND Thoracic Surgery (Cardiothoracic Vascular Surgery)
PROC: 037L3DZ Dilation of Left Internal Carotid Artery with Intraluminal Device, Percutaneous Approach (ICD-10-PCS; principal; 2022-08-30)
DX: I65.22 Occlusion and stenosis of left carotid artery (principal); I10 Essential (primary) hypertension; E07.89 Other specified disorders of thyroid; Z86.73 Personal history of transient ischemic attack (TIA), and cerebral infarction without residual deficits; Z98.890 Other specified postprocedural states; Z79.899 Other long term (current) drug therapy; Z79.890 Hormone replacement therapy; Z79.82 Long term (current) use of aspirin; Z79.02 Long term (current) use of antithrombotics/antiplatelets; E66.3 Overweight; Z68.37 Body mass index [BMI] 37.0-37.9, adult
CPT/HCPCS: 37215; 80048; 85027; 85347; 99152; 99153; C1760; C1769; C1876; C1884; C1887; C1894; J0153; J0461; J1644; J2001; J2250; J2370; J3010; Q9967

== ENCOUNTER 2022-09-28 11:20 | Emergency (ER) | payer BC ==
[2022-09-28 12:28] LABS: #Eosinphils 0.1 thou/uL (0.0-0.7); #Lymphocytes 1.6 thou/uL (1.20-3.40); #Monocytes 0.6 thou/uL (0.11-0.59); #Neutrophils 4.9 thou/uL (1.40-6.50); %Basophils 0.3 % (0.0-1.0); %Lymphocytes 21.8 % (21.0-51.0); %Monocytes 8.4 % (0.0-10.0); %Neutrophils 68.5 % (42.0-75.0); Hemoglobin 15.2 g/dL (14.0-18.0); Mean Corpuscular HGB CONC 34.8 g/dL (32.0-36.0); Mean Corpuscular Volume 89.1 fl (78.0-98.0); Mean Platelet Volume 6.4 fL (7.4-10.4); Platelet Count 200 10x3/uL (130-400); RBC Distribution Width 11.9 % (11.5-14.5); Red Blood Cell (RBC) Count 4.91 mill/uL (4.70-6.10); White Blood Cell (WBC) Count 7.2 10x3/uL (4.8-10.8)
[2022-09-28 13:06] LABS: ALT (SGPT) 19 U/L (8-55); AST (SGOT) 17 U/L (5-34); Albumin 3.8 g/dL (3.4-4.8); Alkaline Phosphatase 100 U/L (40-110); Anion Gap 13 mmol/L (10-20); BUN (Urea Nitrogen) 6 mg/dL (8.4-25.7); Bilirubin, Total 0.7 mg/dL (0.2-1.2); Calc. Creatinine Clearance 0 mL/min (70-130); Calcium 9.1 mg/dL (7.8-10.44); Carbon Dioxide 24 mmol/L (23-31); Chloride 101 mmol/L (98-107); Estimated GFR 79; Globulin 2.7 g/dL (2.4-3.5); Glucose 144 mg/dL (80-115); Potassium 4.2 mmol/L (3.5-5.1); Protein, Total 6.5 g/dL (5.8-8.1); Sodium 134 mmol/L (136-145)
[2022-09-28] MEDS ORDERED: Iopamidol-370 76% 500 ML 1 ML ONE (17:25)
== END 2022-09-28 14:59 | disposition home or self-care (01) ==
LOC: ERS 11:20
DX: I73.9 Peripheral vascular disease, unspecified (principal); I10 Essential (primary) hypertension; E78.5 Hyperlipidemia, unspecified; E03.9 Hypothyroidism, unspecified; Z79.899 Other long term (current) drug therapy; Z79.82 Long term (current) use of aspirin
CPT/HCPCS: 36415; 70496; 70498; 80053; 85025; 93005; 94760; Q9967

== ENCOUNTER 2023-05-13 16:07 | Emergency (ER) | payer BC ==
[2023-05-13] MEDS ORDERED: Acetaminophen 500 MG TAB ONE (20:20)
[2023-05-13 20:30] LABS: #Basophils 0.1 thou/uL (0.0-0.2); #Eosinphils 0.1 thou/uL (0.0-0.7); #Monocytes 0.8 thou/uL (0.11-0.59); #Neutrophils 5.9 thou/uL (1.40-6.50); %Basophils 0.7 % (0.0-1.0); %Eosinophils 0.9 % (0.0-10.0); %Lymphocytes 22.3 % (21.0-51.0); %Monocytes 9.4 % (0.0-10.0); %Neutrophils 65.6 % (42.0-75.0); Hematocrit 45.5 % (42.0-52.0); Hemoglobin 15.5 g/dL (14.0-18.0); Mean Corpuscular HGB CONC 34.1 g/dL (32.0-36.0); Mean Corpuscular Hemoglobin 29.5 pg (27.0-31.0); Mean Corpuscular Volume 86.5 fl (78.0-98.0); Mean Platelet Volume 8.5 fL (7.4-10.4); Platelet Count 213 10x3/uL (130-400); RBC Distribution Width 12.4 % (11.5-14.5); Red Blood Cell (RBC) Count 5.26 mill/uL (4.70-6.10)
[2023-05-13 20:57] LABS: ALT (SGPT) 22 U/L (8-55); AST (SGOT) 17 U/L (5-34); Albumin 4.7 g/dL (3.4-4.8); Alkaline Phosphatase 107 U/L (40-110); Anion Gap 14 mmol/L (10-20); BUN (Urea Nitrogen) 9 mg/dL (8.4-25.7); Bilirubin, Total 0.4 mg/dL (0.2-1.2); Calc. Creatinine Clearance 0 mL/min (70-130); Calcium 9.6 mg/dL (7.8-10.44); Carbon Dioxide 28 mmol/L (23-31); Chloride 97 mmol/L (98-107); Estimated GFR 98; Globulin 2.3 g/dL (2.4-3.5); Glucose 115 mg/dL (80-115); Potassium 4.1 mmol/L (3.5-5.1); Sodium 135 mmol/L (136-145)
[2023-05-13 20:57] LABS: Troponin I Less than 0.010 ng/mL (< 0.028)
== END 2023-05-13 23:12 | disposition home or self-care (01) ==
LOC: ERS 16:07
DX: S00.81XA Abrasion of other part of head, initial encounter (principal); M25.561 Pain in right knee; E11.9 Type 2 diabetes mellitus without complications; I10 Essential (primary) hypertension; E78.5 Hyperlipidemia, unspecified; E03.9 Hypothyroidism, unspecified; Z79.899 Other long term (current) drug therapy; Z79.82 Long term (current) use of aspirin; Z79.84 Long term (current) use of oral hypoglycemic drugs; W18.30XA Fall on same level, unspecified, initial encounter
CPT/HCPCS: 36415; 70450; 71045; 72125; 80053; 84484; 85025; 93005

== ENCOUNTER 2025-07-14 15:58 | Emergency (ER) | payer BC ==
[2025-07-14 16:23] LABS: #Basophils 0.06 10x3/uL (0.0-0.2); #Eosinophils 0.13 10x3/uL (0.0-0.7); #Monocytes 0.83 10x3/uL (0.11-0.59); #Neutrophils 4.83 10x3/uL (1.40-6.50); %Basophils 0.7 % (0.0-1.0); %Eosinophils 1.6 % (0.0-10.0); %Lymphocytes 27.5 % (21.0-51.0); %Monocytes 10.2 % (0.0-10.0); %Neutrophils 59.1 % (42.0-75.0); Hematocrit 42.1 % (42.0-52.0); Hemoglobin 14.7 g/dL (14.0-18.0); Mean Corpuscular Hemoglobin 29.3 pg (27.0-31.0); Mean Corpuscular Volume 83.9 fL (78.0-98.0); Platelet Count 175 10x3/uL (130-400); Red Blood Cell (RBC) Count 5.02 mill/uL (4.70-6.10); White Blood Cell (WBC) Count 8.16 10x3/uL (4.8-10.8)
[2025-07-14 16:44] LABS: ALT (SGPT) 10 U/L (Less than 45); AST (SGOT) 17 U/L (11-34); Albumin 3.5 g/dL (3.1-4.5); Alkaline Phosphatase 64 U/L (40-110); Anion Gap 12 mmol/L (10-20); BUN (Urea Nitrogen) 10 mg/dL (8.4-25.7); Bilirubin, Total 0.3 mg/dL (0.3-1.2); Calc. Creatinine Clearance 0 mL/min (70-130); Calcium 8.7 mg/dL (7.8-10.44); Carbon Dioxide 30 mmol/L (23-31); Chloride 94 mmol/L (98-107); Globulin 2.7 g/dL (2.4-3.5); Glucose 121 mg/dL (80-115); Magnesium 1.6 mg/dL (1.6-2.6); Potassium 4.0 mmol/L (3.5-5.1); Sodium 132 mmol/L (136-145)
== END 2025-07-14 17:53 | disposition home or self-care (01) ==
LOC: ERS 15:58
DX: R56.9 Unspecified convulsions (principal); E11.9 Type 2 diabetes mellitus without complications; I10 Essential (primary) hypertension; Z86.73 Personal history of transient ischemic attack (TIA), and cerebral infarction without residual deficits; E03.9 Hypothyroidism, unspecified; E78.5 Hyperlipidemia, unspecified; Z79.890 Hormone replacement therapy; Z79.899 Other long term (current) drug therapy; Z79.84 Long term (current) use of oral hypoglycemic drugs; Z55.6 Problems related to health literacy
CPT/HCPCS: 70450; 72125; 80053; 83735; 84484; 85025; 93005